=== PATIENT | female | born 1940 | race Caucasian/White ===

== ENCOUNTER 2017-01-23 15:12 | Inpatient (IN) | payer MEDICARE ==
[~2017-01-23] VITALS: Ht 162.6 cm; Wt 80.8 kg
[~2017-01-23 15:12] MED LIST: ASPI81TA23 PO; PRAV20TA2 PO
[2017-01-23 15:14] VITALS: BP 177/75; PULSE 73; RESP 16; TEMP 98.2; O2SAT 98
[2017-01-23] MEDS ORDERED: CITA20TA4 PO (15:30)
[2017-01-23] MEDS ORDERED: FLUT50SP EACH NARE (15:30)
[2017-01-23] MEDS ORDERED: DOXY20TA3 (15:30)
[2017-01-23] MEDS ORDERED: BENA25TA6 (15:30)
[2017-01-23] MEDS ORDERED: LORA1TAB12 PO (15:30)
[2017-01-23] MEDS ORDERED: MULTTAB67 PO (15:30)
[2017-01-23] MEDS ORDERED: VITA2000 PO (15:30)
[2017-01-23] MEDS ORDERED: IBUP1TAB5 PO (15:30)
[2017-01-23] MEDS ORDERED: PRAV40TA2 PO (15:30)
[2017-01-23] MEDS ORDERED: VITA10002 PO (15:30)
[2017-01-23] MEDS ORDERED: VITA500T83 PO (15:30)
[2017-01-23] MEDS ORDERED: CELE200C PO (15:30)
[2017-01-23] MEDS ORDERED: [UNRECOGNIZED DRUG - OTHER] (15:33)
--- NOTE | 2017-01-23 16:02 | PD ---
HPI . Right foot injury, syncope Chief Complaint: Injury Time Seen by Provider: 15:24 Travel History International Travel<30 days: No Contact w/Intl Traveler<30days: No Traveled to known affect area: No History of Present Illness HPI 76 year old female presents to the emergency department for evaluation after she had a syncopal episode this morning and fractured her right foot when she fell as a result of the syncope. Patient initially went to urgent care for evaluation and an x-ray of the right foot showed bimalleolar fracture with diffuse soft tissue swelling around the ankle. Patient states that she passed out for a minute because she became scared; apparently she was taking off her nightgown while she had a heating pad on her back, the heating pad accidently lifted off her lower back when she removed her nightgown and she thought her skin was getting pulled off and she passed out. Patient fell on the ground and woke up with right foot/ankle pain. PFSH Past Medical History Anxiety: Yes High Cholesterol: Yes Tetanus Vaccination: Unknown Influenza Vaccination: Yes Past Surgical History Other Surgery: Yes (LUMPECTOMY X3) Social History Alcohol Use: Yes (OCC) Tobacco Use: No Substance Use: No Allergies-Medications (Allergen,Severity, Reaction): Coded Allergies: iodine (Verified Allergy, Unknown, 01/23/17) Reported Meds & Prescriptions Reported Meds & Active Scripts Active Reported [Duova] Benadryl Allergy (Diphenhydramine HCl) 25 Mg Tablet Ibuprofen 400 Mg Tab 400 Mg PO Q6H PRN Vitamin D3 (Cholecalciferol) 2,000 Unit Cap 2,000 Units PO DAILY Vitamin C ER (Ascorbic Acid) 500 Mg Jovanna 1,000 Mg PO Vitamin B-12 (Cyanocobalamin) 1,000 Mcg Tab 1,000 Mcg PO DAILY Multiple Vitamin 1 Tab 1 Tab PO DAILY Fluticasone Nasal [place] 50 Mcg/Act Naspr 50 Mcg EACH NARE BID 50 mcg/spray Lorazepam 1 Mg Tab 1 Mg PO HS PRN Celebrex (Celecoxib) 200 Mg Cap 200 Mg PO BID Doxycycline Hyclate 20 Mg Tab Citalopram (Citalopram Hydrobromide) 20 Mg Tab 20 Mg PO DAILY Aspirin EC (Aspirin) 81 Mg Tabdr 81 Mg PO DAILY Pravastatin 20 Mg Tab 20 Mg PO DAILY Review of Systems Except as stated in HPI: all other systems reviewed are Neg Physical Exam Narrative GENERAL: Well-nourished, well-developed 76-year-old female patient in no acute distress. Nontoxic appearing. SKIN: Focused skin assessment warm/dry. HEAD: Normocephalic. Atraumatic. NEUROLOGICAL: Awake and alert. Cranial nerves II through XII intact. Motor and sensory grossly within normal limits. Five out of 5 muscle strength in all muscle groups. Normal speech. EYES: No scleral icterus. No injection or drainage. NECK: Supple, trachea midline. No JVD or lymphadenopathy. CARDIOVASCULAR: Regular rate and rhythm with murmur appreciated, No gallops, or rubs. Pedal pulses +2 bilaterally. RESPIRATORY: Breath sounds equal bilaterally. No accessory muscle use. GASTROINTESTINAL: Abdomen soft, non-tender, nondistended. MUSCULOSKELETAL: Right ankle is edematous and ecchymotic. No cyanosis, or erythema. BACK: Nontender without obvious deformity. No CVA tenderness. Data Data Last Documented VS Vital Signs Date Time Temp Pulse Resp B/P (MAP) Pulse Ox O2 Delivery O2 Flow Rate FiO2 01/23/17 15:35 77 18 96 Room Air 01/23/17 15:14 98.2 177/75 (109) Orders Orders Electrocardiogram (01/23/17 15:40) Complete Blood Count With Diff (01/23/17 15:40) Comprehensive Metabolic Panel (01/23/17 15:40) Magnesium (Mg) (01/23/17 15:40) Ckmb (Isoenzyme) Profile (01/23/17 15:40) Troponin I (01/23/17 15:40) Act Partial Throm Time (Ptt) (01/23/17 15:40) Prothrombin Time / Inr (Pt) (01/23/17 15:40) Urinalysis - C+S If Indicated (01/23/17 15:40) Chest, Single Ap (01/23/17 15:40) Ct Brain W/O Iv Contrast(Rout) (01/23/17 15:40) CKMB (01/23/17 15:50) CKMB% (01/23/17 15:50) Admit Order (Ed Use Only) (01/23/17 17:15) Labs Laboratory Tests Test 01/23/17 15:50 01/23/17 17:00 White Blood Count 10.8 TH/MM3 Red Blood Count 4.24 MIL/MM3 Hemoglobin 13.3 GM/DL Hematocrit 39.1 % Mean Corpuscular Volume 92.2 FL Mean Corpuscular Hemoglobin 31.4 PG Mean Corpuscular Hemoglobin Concent 34.1 % Red Cell Distribution Width 12.7 % Platelet Count 218 TH/MM3 Mean Platelet Volume 9.4 FL Neutrophils (%) (Auto) 78.3 % Lymphocytes (%) (Auto) 13.3 % Monocytes (%) (Auto) 7.0 % Eosinophils (%) (Auto) 1.0 % Basophils (%) (Auto) 0.4 % Neutrophils # (Auto) 8.4 TH/MM3 Lymphocytes # (Auto) 1.4 TH/MM3 Monocytes # (Auto) 0.8 TH/MM3 Eosinophils # (Auto) 0.1 TH/MM3 Basophils # (Auto) 0.0 TH/MM3 CBC Comment DIFF FINAL Differential Comment Prothrombin Time 10.3 SEC Prothromb Time International Ratio 1.0 RATIO Activated Partial Thromboplast Time 22.6 SEC Blood Urea Nitrogen 15 MG/DL Creatinine 0.77 MG/DL Random Glucose 105 MG/DL Total Protein 8.1 GM/DL Albumin 4.1 GM/DL Calcium Level 9.3 MG/DL Magnesium Level 1.9 MG/DL Alkaline Phosphatase 61 U/L Aspartate Amino Transf (AST/SGOT) 23 U/L Alanine Aminotransferase (ALT/SGPT) 25 U/L Total Bilirubin 0.3 MG/DL Sodium Level 138 MEQ/L Potassium Level 3.6 MEQ/L Chloride Level 104 MEQ/L Carbon Dioxide Level 27.4 MEQ/L Anion Gap 7 MEQ/L Estimat Glomerular Filtration Rate 73 ML/MIN Total Creatine Kinase 126 U/L Creatine Kinase MB 3.1 NG/ML Troponin I LESS THAN 0.02 NG/ML Urine Color YELLOW Urine Turbidity CLEAR Urine pH 5.5 Urine Specific [place] 1.019 Urine Protein TRACE mg/dL Urine Glucose (UA) NEG mg/dL Urine Ketones NEG mg/dL Urine Occult Blood NEG Urine Nitrite NEG Urine Bilirubin NEG Urine Urobilinogen LESS THAN 2.0 MG/DL Urine Leukocyte Esterase SMALL Urine RBC 5 /hpf Urine WBC 5 /hpf Urine Squamous Epithelial Cells 3 /hpf Urine Hyaline Casts 1 /lpf Urine Mucus FEW /lpf Microscopic Urinalysis Comment CULT NOT INDICATED MDM Medical Decision Making Medical Screen Exam Complete: Yes Emergency Medical Condition: Yes Differential Diagnosis Differential diagnoses include but not limited electrolyte abnormality, ankle fracture, ankle sprain, syncope, coronary event, vasovagal event Narrative Course 76-year-old female presents emergency department for evaluation after having a syncopal episode and fracturing her right ankle. Patient was evaluated at an urgent care clinic and the x-ray of the right ankle was performed. Patient was referred to the emergency department for admission for the bimalleolar ankle fracture. Patient was admitted to the hospital for syncope and surgical intervention for the fracture. Residents accepted admission. Dr. Osei, orthopedic surgeon was consulted for surgical intervention. Patient admitted to the hospital at this time. Dr. Nguyen spoke with the residents and Dr. Osei regarding this patient case. Please see his doctor medication for further details. Aida Langley Jan 23, 2017 16:02
--- NOTE | 2017-01-23 16:06 | RADRPT ---
EXAM DATE/TIME: 01/23/2017 15:53 [facility] COMPARISON: No previous studies available for comparison. INDICATIONS : Syncope. Weakness. MEDICAL HISTORY : None. SURGICAL HISTORY : None. ENCOUNTER: Initial ACUITY: 1 day PAIN SCORE: 6/10 LOCATION: Bilateral chest FINDINGS: A single view of the chest demonstrates the lungs to be symmetrically aerated without evidence of mas s, infiltrate or effusion. The cardiomediastinal contours are unremarkable. Osseous structures are intact. CONCLUSION: No acute disease. Huy Shepherd MD on January 23, 2017 at 16:04 Board Certified Radiologist. This report was verified electronically.
[2017-01-23 16:08] LABS: AUTOMATED NEUTROPHIL # 8.4 TH/MM3 (1.8-7.7); BASOPHIL % 0.4 % (0.0-2.0); EOSINOPHIL # 0.1 TH/MM3 (0-0.4); HEMATOCRIT 39.1 % (35.0-46.0); HEMO FLAGS DIFF FINAL; LYMPH % 13.3 % (9.0-44.0); LYMPHOCYTE # 1.4 TH/MM3 (1.0-4.8); MEAN CELL VOLUME 92.2 FL (80.0-100.0); MEAN CORPUSCULAR HEMOGLOBIN 31.4 PG (27.0-34.0); MEAN CORPUSCULAR HGB CONC 34.1 % (32.0-36.0); NEUT % 78.3 % (16.0-70.0); PLATELET COUNT 218 TH/MM3 (150-450); RED BLOOD COUNT 4.24 MIL/MM3 (4.00-5.30); RED CELL DISTRIBUTION WIDTH 12.7 % (11.6-17.2); WHITE BLOOD COUNT 10.8 TH/MM3 (4.0-11.0)
--- NOTE | 2017-01-23 16:08 | RADRPT ---
EXAM DATE/TIME: 01/23/2017 15:50 [facility] COMPARISON: No previous studies available for comparison. INDICATIONS : Syncope. RADIATION DOSE: 56.35 CTDIvol (mGy) MEDICAL HISTORY : Carcinoma, breast. Hypercholesterolemia. SURGICAL HISTORY : Mouth implants.Lumpectomy x 3 ENCOUNTER: Initial ACUITY: 1 day PAIN SCALE: 0/10 LOCATION: cranial TECHNIQUE: Multiple contiguous axial images were obtained of the head. Using automated exposure control and adj ustment of the mA and/or kV according to patient size, radiation dose was kept as low as reasonably a chievable to obtain optimal diagnostic quality images. DICOM format image data is available electro nically for review and comparison. FINDINGS: CEREBRUM: The ventricles are normal for age. There is bilateral cortical atrophy and chronic white matter kothari es. There is a small old appearing infarct involving the medial left occipital lobe. No evidence of midline shift, mass lesion, hemorrhage or acute infarction. No extra-axial fluid collections are see n. POSTERIOR FOSSA: The cerebellum and brainstem are intact. The 4th ventricle is midline. The cerebellopontine angle i s unremarkable. EXTRACRANIAL: The visualized portion of the orbits is intact. SKULL: The calvaria is intact. No evidence of skull fracture. CONCLUSION: 1. No focal or acute intracranial hemorrhage. 2. 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 3. Bilateral chronic white matter changes. Huy Shepherd MD on January 23, 2017 at 16:04 Board Certified Radiologist. This report was verified electronically.
[2017-01-23 16:21] LABS: APTT (PATIENT) 22.6 SEC (24.3-30.1); PROTHROMBIN TIME - PATIENT 10.3 SEC (9.8-11.6)
[2017-01-23 16:27] LABS: ALT (GPT) 25 U/L (10-53); ANION GAP 7 MEQ/L (5-15); AST (GOT) 23 U/L (15-37); BICARBONATE 27.4 MEQ/L (21.0-32.0); BLOOD UREA NITROGEN 15 MG/DL (7-18); CHLORIDE 104 MEQ/L (98-107); GLOMERULAR FILTRATION RATE 73 ML/MIN (>89); MAGNESIUM 1.9 MG/DL (1.5-2.5); POTASSIUM 3.6 MEQ/L (3.5-5.1); SODIUM (NA) 138 MEQ/L (136-145)
[2017-01-23 16:31] LABS: ALKALINE PHOSPHATASE 61 U/L (45-117); CREATINE KINASE 126 U/L (26-192); TOTAL BILIRUBIN ADULT 0.3 MG/DL (0.2-1.0)
[2017-01-23 16:43] LABS: CKMB 3.1 NG/ML (0.5-3.6)
--- NOTE | 2017-01-23 17:03 | PD ---
Data Data Last Documented VS Vital Signs Date Time Temp Pulse Resp B/P (MAP) Pulse Ox O2 Delivery O2 Flow Rate FiO2 01/23/17 15:35 77 18 96 Room Air 01/23/17 15:14 98.2 177/75 (109) Orders Orders Electrocardiogram (01/23/17 15:40) Complete Blood Count With Diff (01/23/17 15:40) Comprehensive Metabolic Panel (01/23/17 15:40) Magnesium (Mg) (01/23/17 15:40) Ckmb (Isoenzyme) Profile (01/23/17 15:40) Troponin I (01/23/17 15:40) Act Partial Throm Time (Ptt) (01/23/17 15:40) Prothrombin Time / Inr (Pt) (01/23/17 15:40) Urinalysis - C+S If Indicated (01/23/17 15:40) Chest, Single Ap (01/23/17 15:40) Ct Brain W/O Iv Contrast(Rout) (01/23/17 15:40) CKMB (01/23/17 15:50) CKMB% (01/23/17 15:50) Admit Order (Ed Use Only) (01/23/17 17:15) Labs Laboratory Tests Test 01/23/17 15:50 01/23/17 17:00 White Blood Count 10.8 TH/MM3 Red Blood Count 4.24 MIL/MM3 Hemoglobin 13.3 GM/DL Hematocrit 39.1 % Mean Corpuscular Volume 92.2 FL Mean Corpuscular Hemoglobin 31.4 PG Mean Corpuscular Hemoglobin Concent 34.1 % Red Cell Distribution Width 12.7 % Platelet Count 218 TH/MM3 Mean Platelet Volume 9.4 FL Neutrophils (%) (Auto) 78.3 % Lymphocytes (%) (Auto) 13.3 % Monocytes (%) (Auto) 7.0 % Eosinophils (%) (Auto) 1.0 % Basophils (%) (Auto) 0.4 % Neutrophils # (Auto) 8.4 TH/MM3 Lymphocytes # (Auto) 1.4 TH/MM3 Monocytes # (Auto) 0.8 TH/MM3 Eosinophils # (Auto) 0.1 TH/MM3 Basophils # (Auto) 0.0 TH/MM3 CBC Comment DIFF FINAL Differential Comment Prothrombin Time 10.3 SEC Prothromb Time International Ratio 1.0 RATIO Activated Partial Thromboplast Time 22.6 SEC Blood Urea Nitrogen 15 MG/DL Creatinine 0.77 MG/DL Random Glucose 105 MG/DL Total Protein 8.1 GM/DL Albumin 4.1 GM/DL Calcium Level 9.3 MG/DL Magnesium Level 1.9 MG/DL Alkaline Phosphatase 61 U/L Aspartate Amino Transf (AST/SGOT) 23 U/L Alanine Aminotransferase (ALT/SGPT) 25 U/L Total Bilirubin 0.3 MG/DL Sodium Level 138 MEQ/L Potassium Level 3.6 MEQ/L Chloride Level 104 MEQ/L Carbon Dioxide Level 27.4 MEQ/L Anion Gap 7 MEQ/L Estimat Glomerular Filtration Rate 73 ML/MIN Total Creatine Kinase 126 U/L Creatine Kinase MB 3.1 NG/ML Troponin I LESS THAN 0.02 NG/ML Urine Color YELLOW Urine Turbidity CLEAR Urine pH 5.5 Urine Specific [place] 1.019 Urine Protein TRACE mg/dL Urine Glucose (UA) NEG mg/dL Urine Ketones NEG mg/dL Urine Occult Blood NEG Urine Nitrite NEG Urine Bilirubin NEG Urine Urobilinogen LESS THAN 2.0 MG/DL Urine Leukocyte Esterase SMALL Urine RBC 5 /hpf Urine WBC 5 /hpf Urine Squamous Epithelial Cells 3 /hpf Urine Hyaline Casts 1 /lpf Urine Mucus FEW /lpf Microscopic Urinalysis Comment CULT NOT INDICATED MDM Medical Record Reviewed: Yes Supervised Visit with ANISH: Yes Narrative Course I, Dr. Nguyen, have reviewed the advance practice practitioner's documentation and am in agreement, met with the patient face to face, made the diagnosis, and the medical decision making was done by me. *My assessment and Findings: CBC & BMP Diagram 01/23/17 15:50 Total Protein 8.1, Albumin 4.1, Calcium Level 9.3, Magnesium Level 1.9, Alkaline Phosphatase 61, Aspartate Amino Transf (AST/SGOT) 23, Alanine Aminotransferase (ALT/SGPT) 25, Total Bilirubin 0.3 EKG: Sinus rate 72 normal axis/intervals Tn < 0.[address] 01/23/17 1540 Signed Impressions: Service Date/Time: Monday, January 23, 2017 15:50 - CONCLUSION: 1. No focal or acute intracranial hemorrhage. 2. 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 3. Bilateral chronic white matter changes. Huy Shepherd MD Chest X-Ray 01/23/17 1540 Signed Impressions: Service Date/Time: Monday, January 23, 2017 15:53 - CONCLUSION: No acute disease. Huy Shepherd MD Ankle xray shows bimalleolar fracture of the right ankle, closed Pt unsuitable for discharge home with podiatry follow up tomorrow due to inability to ambulate with crutches given age 76 and habitus and risk of fall with potential additional injuries. d/w Dr Osei: npo p mn, repair tomorrow Diagnosis Primary Impression: Bimalleolar ankle fracture Qualified Codes: S82.841A - Displaced bimalleolar fracture of right lower leg , initial encounter for closed fracture Additional Impression: Syncope Qualified Codes: R55 - Syncope and collapse Admitting Information Admitting Physician Requests: Observation Scripts Commode 3-in-1 (Commode 3-in-1) 1 Mis Mis EA .ROUTE DIRECTED, #1 0 Refills Prov: Jared Davies PA/Classified Ad Clerk PA 01/25/17 Hydrocodone-Acetaminophen (Hydrocodone-Acetaminophen) 7.5 Mg-325 Mg Tab 1 TAB PO Q4H Y for PAIN, #40 TAB 0 Refills Prov: Jared Daviess PA/Classified Ad Clerk PA 01/24/17 Wheelchair (Wheelchair) 1 Mis Mis EA .ROUTE DIRECTED, #1 0 Refills Prov: Jared Daviess PA/Classified Ad Clerk PA 01/24/17 Walker/Adult/Folding (Walker/Adult/Folding) 1 Mis Mis EA .ROUTE DIRECTED, #1 0 Refills Prov: Jared Davies PA/Classified Ad Clerk PA 01/24/17 Krishna Nguyen MD Jan 23, 2017 17:03
[2017-01-23 17:20] LABS: BLOOD, URINE NEG (NEG); COMMENT (UR) CULT NOT INDICATED; CULTURE IF INDICATED CULT NOT INDICATED; GLUCOSE,URINE NEG (NEG); HYALINE CAST, URINE 1 /lpf (RARE); KETONE, URINE NEG (NEG); MUCUS URINE FEW /lpf (OCC); NITRITE,URINE NEG (NEG); PH, URINE 5.5 (5.0-8.5); SQUAMOUS EPITHELIAL CELL URINE 3 /hpf (0-5); URINE COLOR YELLOW (YELLW/STRAW)
--- NOTE | 2017-01-23 17:33 | HHI.HP ---
[facility] Service Family Medicine Primary Care Physician Fer Dawson MD Admission Diagnosis ankle fracture, syncope Diagnoses: International Travel<30 Days: No Contact w/Intl Traveler<30days: No Known Affected Area: No History of Present Illness 76 yr old F w/ hx of syncopal episodes and HLD, presents with ankle fracture after mechanical fall due to syncope. Patients reports 1week hx back pain from heavy lifting. She used two hot/cold patches in addition to a heating pad on her lower back last night. When she woke up this morning, she was trying to remove the patches. However, the patches were stuck to her skin and she began to feel a lot of pain as she was pulling them off. She started to turn cold and lightheaded. She tried laying down and put too much weight on her right ankle. She denies hitting her head and is unsure if she had LOC. The last thing she remember was hitting the hardwood floor and was unable to get up afterwards. Luckily, her was nearby and immediately brought her to the urgent care. X-ray of her right ankle revealed bimalleolar fracture. She denies shaking, CP, SOB, urinary incontinence, palpitations, vision changes, weakness in arms/legs, LUNA, and N/V. She's had these syncopal episodes for the past 5 years and they are usually brought on by pain. Her firs episode happened 5 years ago. She was sitting on the toilet and the next thing she knew she was on the floor. She did not get evaluate by a physician then. Her next couple of episodes have been associated with stomach pain (intermittent sharp pain in lower abdominal quadrants) and relieved with bowel movements. She reports "feeling like her body is turning cold and starts to spread." She had a coloscopy 5 years ago and several polyps were removed. She states that she is able to control these syncopal episodes by lying down. PCP, Dr. Dawson Review of Systems Constitutional: DENIES: Fever, Weight loss, Night Sweats Endocrine: DENIES: Heat/cold intolerance Eyes: DENIES: Blurred vision, Diplopia Ears, nose, mouth, throat: DENIES: Hearing loss Respiratory: DENIES: Shortness of breath Cardiovascular: COMPLAINS OF: Syncope, DENIES: Chest pain, Palpitations, Lower Extremity Edema Gastrointestinal: DENIES: Abdominal pain, Nausea, Vomiting Musculoskeletal: COMPLAINS OF: Joint pain (R ankle pain ), DENIES: Muscle aches Hematologic/lymphatic: DENIES: Bruising Neurologic: DENIES: Headache, Poor Balance Psychiatric: DENIES: Confusion Past Family Social History Past Medical History HLD Rosacea- takes doxycycline for it Arthritis no hx of heart attack or stroke Past Surgical History 3 lobectomy in Left breast- benign dental surgery- implants Allergies: Coded Allergies: iodine (Verified Allergy, Unknown, 01/23/17) Family History Mom- at 57 [place] Dad -CHF at 71 Social History Lives with , in [place] Retired Never smoker Occasional drinker 1glass of wine every 3rd night denies illicit drugs Physical Exam Vital Signs Vital Signs Date Time Temp Pulse Resp B/P (MAP) Pulse Ox O2 Delivery O2 Flow Rate FiO2 01/23/17 15:35 77 18 96 Room Air 01/23/17 15:14 98.2 73 16 177/75 (109) 98 Physical Exam GENERAL: pleasant lady, lying in bed, in NAD SKIN: No rashes, ecchymoses or lesions. Cool and dry. HEAD: Atraumatic. Normocephalic. EYES: PERRLA, EOMI ENT: Throat clear NECK: Trachea midline. No JVD or lymphadenopathy. No carotid bruits. CARDIOVASCULAR: RRR, no m/r/g RESPIRATORY: CTAB GASTROINTESTINAL: Abdomen soft, non-tender, nondistended. +BS MUSCULOSKELETAL: R ankle moderately swollen compared to the L, moderate tenderness in R ankle upon palpation, able to move all toes, sensation intact, pedal pulses 2+ NEUROLOGICAL: Awake, Alert, oriented x3 Laboratory Laboratory Tests Test 01/23/17 15:50 01/23/17 17:00 White Blood Count 10.8 Red Blood Count 4.24 Hemoglobin 13.3 Hematocrit 39.1 Mean Corpuscular Volume 92.2 Mean Corpuscular Hemoglobin 31.4 Mean Corpuscular Hemoglobin Concent 34.1 Red Cell Distribution Width 12.7 Platelet Count 218 Mean Platelet Volume 9.4 Neutrophils (%) (Auto) 78.3 Lymphocytes (%) (Auto) 13.3 Monocytes (%) (Auto) 7.0 Eosinophils (%) (Auto) 1.0 Basophils (%) (Auto) 0.4 Neutrophils # (Auto) 8.4 Lymphocytes # (Auto) 1.4 Monocytes # (Auto) 0.8 Eosinophils # (Auto) 0.1 Basophils # (Auto) 0.0 CBC Comment DIFF FINAL Differential Comment Prothrombin Time 10.3 Prothromb Time International Ratio 1.0 Activated Partial Thromboplast Time 22.6 Blood Urea Nitrogen 15 Creatinine 0.77 Random Glucose 105 Total Protein 8.1 Albumin 4.1 Calcium Level 9.3 Magnesium Level 1.9 Alkaline Phosphatase 61 Aspartate Amino Transf (AST/SGOT) 23 Alanine Aminotransferase (ALT/SGPT) 25 Total Bilirubin 0.3 Sodium Level 138 Potassium Level 3.6 Chloride Level 104 Carbon Dioxide Level 27.4 Anion Gap 7 Estimat Glomerular Filtration Rate 73 Total Creatine Kinase 126 Creatine Kinase MB 3.1 Troponin I LESS THAN 0.02 Urine Color YELLOW Urine Turbidity CLEAR Urine pH 5.5 Urine Specific [place] 1.019 Urine Protein TRACE Urine Glucose (UA) NEG Urine Ketones NEG Urine Occult Blood NEG Urine Nitrite NEG Urine Bilirubin NEG Urine Urobilinogen LESS THAN 2.0 Urine Leukocyte Esterase SMALL Urine RBC 5 Urine WBC 5 Urine Squamous Epithelial Cells 3 Urine Hyaline Casts 1 Urine Mucus FEW Microscopic Urinalysis Comment CULT NOT INDICATED Result Diagram: 01/23/17 1550 01/23/17 1550 Imaging Last Impressions Head CT 01/23/17 1540 Signed Impressions: Service Date/Time: Monday, January 23, 2017 15:50 - CONCLUSION: 1. No focal or acute intracranial hemorrhage. 2. 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 3. Bilateral chronic white matter changes. Huy Shepherd MD Chest X-Ray 01/23/17 1540 Signed Impressions: Service Date/Time: Monday, January 23, 2017 15:53 - CONCLUSION: No acute disease. Huy Shepherd MD Caprini VTE Risk Assessment Caprini VTE Risk Assessment: Mod/High Risk (score >= 2) Caprini Risk Assessment Model Point Value = 1 Point Value = 2 Point Value = 3 Point Value = 5 Age 41-60 Minor surgery BMI > 25 kg/m2 Swollen legs Varicose veins or History of unexplained or recurrent spontaneous Oral contraceptives or hormone replacement Sepsis (< 1 month) Serious lung disease, including pneumonia (< 1 month) Abnormal pulmonary function Acute myocardial infarction Congestive heart failure (< 1 month) History of inflammatory bowel disease Medical patient at bed rest Age 61-74 Arthroscopic surgery Major open surgery (> 45 min) Laparoscopic surgery (> 45 min) Malignancy Confined to bed (> 72 hours) Immobilizing plaster cast Central venous access Age >= 75 History of VTE Family history of VTE Factor V Leiden Prothrombin [id number] Lupus anticoagulant Anticardiolipin antibodies Elevated serum homocysteine Heparin-induced thrombocytopenia Other congenital or acquired thrombophilia Stroke (< 1 month) Elective arthroplasty Hip, pelvis, or leg fracture Acute spinal cord injury (< 1 month) Prophylaxis Regimen Total Risk Factor Score Risk Level Prophylaxis Regimen 0-1 Low Early ambulation 2 Moderate Order ONE of the following: *Sequential Compression Device (SCD) *Heparin 5000 units SQ BID 3-4 Higher Order ONE of the following medications: *Heparin 5000 units SQ TID *Enoxaparin/Lovenox 40 mg SQ daily (WT < 150 kg, CrCl > 30 mL/min) *Enoxaparin/Lovenox 30 mg SQ daily (WT < 150 kg, CrCl > 10-29 mL/min) *Enoxaparin/Lovenox 30 mg SQ BID (WT < 150 kg, CrCl > 30 mL/min) AND/OR *Sequential Compression Device (SCD) 5 or more Highest Order ONE of the following medications: *Heparin 5000 units SQ TID (Preferred with Epidurals) *Enoxaparin/Lovenox 40 mg SQ daily (WT < 150 kg, CrCl > 30 mL/min) *Enoxaparin/Lovenox 30 mg SQ daily (WT < 150 kg, CrCl > 10-29 mL/min) *Enoxaparin/Lovenox 30 mg SQ BID (WT < 150 kg, CrCl > 30 mL/min) AND *Sequential Compression Device (SCD) Assessment and Plan Assessment and Plan 76 yr old F admitted for bimalleolar fracture of R ankle due to mechanical fall secondary to syncope (most likely vasovagal). Ortho consulted. Code Status Full Code Discussed Condition With Dr. Hollins Problem List: (1) Bimalleolar ankle fracture ICD Codes: S82.843A - Displaced bimalleolar fracture of unspecified lower leg, initial encounter for closed fracture Status: Acute Plan: CXR at urgent care clinic revealed bimalleolar fracture with diffuse soft tissue swelling of R ankle. Orthopedic consulted. ED physician spoke with Dr. Osei, patient will need surgery in the AM. NPO after midnight, MIVF Pain control: [place] 5mg 1 tab PO q4 pain 3-5, [place] 7.5 mg PO q4h pain 6-10, morphine 2mg IV push q3h for breakthrough pain (2) Syncope ICD Codes: R55 - Syncope and collapse Status: Acute Plan: Pt reports multiple syncopal episodes in the past, related to abdominal pain, resolved with defecation and lying down. Most likely vasovagal due to hx. EKG sinus rhythm Monitor with telemetry Pt reports never having carotid US or Echo, may consider as outpatient work-up Normal stress test done [address] Shafer Colonoscopy for abdominal pain 5 years ago, several polyps removed (3) Anxiety ICD Codes: F41.9 - Anxiety disorder, unspecified Plan: Continue home med: Citalopram 20mg BID Ativan 1mg PO HS (4) Rosacea ICD Codes: L71.9 - Rosacea, unspecified Plan: Held home med: Doxycycline 20mg daily (5) Arthritis ICD Codes: M19.90 - Unspecified osteoarthritis, unspecified site Plan: Held home med: Celecoxib 200mg BID (6) HLD (hyperlipidemia) ICD Codes: E78.5 - Hyperlipidemia, unspecified Plan: Continue Pravastatin 20mg daily (7) Nutrition, metabolism, and development symptoms ICD Codes: R63.8 - Other symptoms and signs concerning food and fluid intake Plan: Diet: NPO after midnight Fluids: 115mls/hr MIVF after midnight Electrolytes: monitor and replace as needed DVT ppx: SCDs PT to eval and treat, may need rehab after surgery Case management consult Physician Certification 2 Midnight Certification Type: Admission for Inpatient Services Order for Inpatient Services The services are ordered in accordance with Medicare regulations or non- Medicare payer requirements, as applicable. In the case of services not specified as inpatient-only, they are appropriately provided as inpatient services in accordance with the 2-midnight benchmark. Estimated LOS (days): 2 2 days is the estimated time the patient will need to remain in the hospital, assuming treatment plan goals are met and no additional complications. Post-Hospital Plan: Home Problem Qualifiers (1) Bimalleolar ankle fracture: Qualified Codes: S82.841A - Displaced bimalleolar fracture of right lower leg, initial encounter for closed fracture (2) Syncope: Qualified Codes: R55 - Syncope and collapse Etta Loomis MD R1 Jan 23, 2017 17:33
[2017-01-23] MEDS ORDERED: SENNOSIDES 8.6 MG TAB PO PRN (18:15)
[2017-01-23] MEDS ORDERED: SODIUM CHLORIDE 0.9% FLUSH 10 ML FLUSH IV FLUSH PRN (18:15)
[2017-01-23] MEDS ORDERED: MORPHINE SULFATE 4 MG/ML INJ IV PUSH PRN (18:15)
[2017-01-23] MEDS ORDERED: ACETAMINOPHEN/HYDROcodone 325 MG/5 MG TAB PO PRN (18:15)
[2017-01-23] MEDS ORDERED: MAGNESIUM HYDROXIDE SUSP 30 ML CUP PO PRN (18:15)
[2017-01-23] MEDS ORDERED: ONDANSETRON HCL 4 MG/2 ML VIAL IVP PRN (18:15)
[2017-01-23] MEDS ORDERED: NALOXONE HCL 0.4 MG/ML AMP IV PUSH PRN (18:15)
[2017-01-23] MEDS ORDERED: BISACODYL 10 MG SUPP RECTAL PRN (18:15)
[2017-01-23] MEDS ORDERED: LACTULOSE SYRUP 20 GM/30 ML CUP PO PRN (18:15)
[2017-01-23] MEDS ORDERED: ACETAMINOPHEN/HYDROcodone 325 MG/7.5 MG TAB PO PRN (18:15)
[2017-01-23] MEDS: PRAVASTATIN SOD 20 MG TAB PO SCH (20:04)
[2017-01-23] MEDS: CITALOPRAM HYDROBROMIDE 20 MG TAB PO SCH (20:04)
[2017-01-23] MEDS: DOCUSATE SODIUM 50 MG/SENNA 8.6 MG TAB PO SCH (20:04)
[2017-01-23] MEDS: SODIUM CHLORIDE 0.9% FLUSH 10 ML FLUSH IV FLUSH SCH (20:04)
[2017-01-23 20:45] VITALS: BP 172/79; PULSE 77; RESP 17; TEMP 99; O2SAT 96
[2017-01-23] MEDS ORDERED: CELECOXIB 200 MG CAP PO SCH (21:00)
[2017-01-23 21:40] VITALS: PULSE 80
[2017-01-23] MEDS ORDERED: diphenhydrAMINE HCL 25 MG CAP PO PRN (22:30)
[2017-01-23] MEDS: LORazepam 1 MG TAB PO PRN (23:32)
[2017-01-24] VITALS (7 sets, daily range): BP systolic 118–137; BP diastolic 58–78; PULSE 79–97; RESP 16–18; TEMP 96.6–99.3; O2SAT 92–100
[2017-01-24] MEDS ORDERED: LACTATED RINGER'S 1000 ML IV PRN (00:15)
[2017-01-24] MEDS ORDERED: METOPROLOL TARTRATE 25 MG TAB PO PRN (00:15)
[2017-01-24] MEDS ORDERED: SODIUM CHLORID 0.9% 500 ML IV PRN (00:15)
[2017-01-24] MEDS ORDERED: CHLORHEXIDINE GLUCONATE 2 % 1 PACK (2 CLOTHS) TOPICAL PRN (00:15)
[2017-01-24] MEDS ORDERED: GENTAMICIN SULFATE 80 MG/2 ML VIAL ONE (07:03)
[2017-01-24 07:05] LABS: BASOPHIL % 0.4 % (0.0-2.0); EOSINOPHIL # 0.4 TH/MM3 (0-0.4); EOSINOPHIL % 4.3 % (0.0-4.0); HEMATOCRIT 34.3 % (35.0-46.0); HEMO FLAGS DIFF FINAL; LYMPH % 25.7 % (9.0-44.0); LYMPHOCYTE # 2.2 TH/MM3 (1.0-4.8); MEAN CORPUSCULAR HGB CONC 34.8 % (32.0-36.0); MONO % 10.8 % (0.0-8.0); NEUT % 58.8 % (16.0-70.0); PLATELET COUNT 184 TH/MM3 (150-450); RED BLOOD COUNT 3.73 MIL/MM3 (4.00-5.30); RED CELL DISTRIBUTION WIDTH 12.4 % (11.6-17.2); WHITE BLOOD COUNT 8.5 TH/MM3 (4.0-11.0)
--- NOTE | 2017-01-24 07:17 | PD.ORT.PN ---
Subjective Subjective Remarks Fall at home and rolled her right ankle. Brought to the emergency room and x- rays confirmed bimalleolar ankle fracture Objective Vitals Vital Signs Date Time Temp Pulse Resp B/P (MAP) Pulse Ox O2 Delivery O2 Flow Rate FiO2 01/24/17 04:13 98.7 84 17 118/77 (91) 97 01/24/17 00:52 93 21 01/24/17 00:22 99.3 79 17 137/78 (97) 96 01/23/17 21:40 80 01/23/17 20:45 99.0 77 17 172/79 (110) 96 01/23/17 15:35 77 18 96 Room Air 01/23/17 15:14 98.2 73 16 177/75 (109) 98 I/O 01/23/17 01/23/17 01/23/17 01/24/17 01/24/17 01/24/17 07:00 15:00 23:00 07:00 15:00 23:00 Intake Total 240 ml 0 ml Balance 240 ml 0 ml Intake Oral 240 ml 0 ml # Voids 1 1 # Bowel Movements 0 0 Result Diagram: 01/24/17 0503 01/23/17 1550 Other Results Laboratory Tests Test 01/23/17 15:50 Prothromb Time International Ratio 1.0 RATIO Prothrombin Time 10.3 SEC (9.8-11.6) Imaging Last [address] 01/23/17 1540 Signed Impressions: Service Date/Time: Monday, January 23, 2017 15:50 - CONCLUSION: 1. No focal or acute intracranial hemorrhage. 2. 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 3. Bilateral chronic white matter changes. Huy Shepherd MD Chest X-Ray 01/23/17 1540 Signed Impressions: Service Date/Time: Monday, January 23, 2017 15:53 - CONCLUSION: No acute disease. Huy Shepherd MD Objective Remarks Right lower extremity: No pain with hip or knee range of motion. She has significant tenderness over with medial lateral portion of the ankle. No splint is present. She has intact sensation distally she has swelling of +2. Skin is intact over the ankle Assessment & Plan Assessment and Plan Right bimalleolar ankle fracture Nothing by mouth Sign consents Surgery this morning with Dr. Navi Bowser Jr. HI Jan 24, 2017 07:17
[2017-01-24 07:28] LABS: BICARBONATE 27.3 MEQ/L (21.0-32.0); POTASSIUM 3.5 MEQ/L (3.5-5.1)
[2017-01-24] MEDS ORDERED: ceFAZolin INJ 1,000 MG VIAL ONE (08:37)
[2017-01-24] MEDS ORDERED: VANCOMYCIN HCL 1000 MG VIAL ONE (08:37)
--- NOTE | 2017-01-24 09:39 | PD.OP ---
cc: Constantine Larios MD Operative Report Date of Surgery: Jan 24, 2017 Preoperative Diagnosis: Right ankle trimalleolar fracture Postoperative Diagnosis: Procedure: Open reduction internal fixation right ankle trimalleolar fracture, stress exam of syndesmosis Anesthesia: Gen. Surgeon: Constantine Larios Barge Worker(s): BOLA Mendez PA-C The surgical procedure was assisted by my physician ambulance assistant. My P.A. presence was necessary throughout this case for the manipulation and positioning of the surgical extremity. My P.A. was assisting me throughout the duration of this procedure. The skill set of a physician ambulance assistant was medically necessary to complete this procedure. During the surgical case the surgical appliances salesperson was working at the back table and the physician ambulance assistant was directly assisting me. Operation and Findings: Implants used :ITS Patient was seen and evaluated preoperatively and found to have a displaced right trimalleolar ankle fracture. Informed consent was obtained after a detailed discussion of risk and benefits of surgery. The operative site was marked. Patient was brought to the OR, placed on the OR table, and given IV sedation and general endotracheal anesthesia. IV antibiotics were given preoperatively. A timeout procedure was performed. The operative leg was prepped with alcohol followed by Hibiclens and draped in the usual sterile fashion. Attention was turned towards the distal fibula. A four-inch incision was made over the distal fibula. The subcutaneous tissue was dissected with Bovie. The fracture site was visualized. The fracture site was cleaned with curets. The fracture was now reduced. The fracture keyed into anatomic alignment. K-wires were used to h old provisional fixation. A lag screw was placed to compress fracture. A plate was selected and contoured to fit the distal fibula. The plate was provisionally held to bone with K-wires. 3.5 cortical screws were used to compress the plate to bone. Multiple screws were placed above and below the fracture. Next attention was turned towards the medial malleolus. The medial malleolus supposed through a 3 cm incision. Saphenous vein was retracted. Fracture was visualized. Fracture was cleaned with curettes. Fracture was now reduced and keyed into anatomic alignment. K wires were used to hold provisional fixation. 2 guidepins for the 4.0 cannulated screws were placed in a retrograde fashion across the fracture. Fluoroscopy was used to confirm guidepin placement. Cannulated drill was placed over the guidepin. 2 appropriate length screws were now placed. Good compression was applied. Fluoroscopy confirmed well aligned fracture with well-placed hardware. The posterior malleolus fracture was also visualized under fluoroscopy. Fracture fragment was relatively small with minimal articular surface. This was left in place. Next, attention was turned to the syndesmosis. The syndesmosis was stressed. There was no widening of the syndesmosis with external rotation of the ankle. Incisions were thoroughly irrigated. The subcutaneous tissue was closed with 3- 0 Vicryl and the skin was closed with 3-0 nylon. Sterile dressings were applied. A well molded well-padded splint was applied. The patient was transferred to Recovery in stable condition. Needle and sponge counts were correct. Constantine Larios MD Jan 24, 2017 09:39
[2017-01-24] MEDS ORDERED: Post-op Orders (for Pharmacy) XX ONE (09:45)
--- NOTE | 2017-01-24 09:55 | MB ---
cc: SILVIA VOGEL DATE OF ADMISSION 01/23/2017 DATE OF CONSULTATION 01/24/2017 REASON FOR CONSULTATION Right ankle fracture. CONSULTING PHYSICIAN Dr. Juliet Pate. HISTORY Carolee is a 76-year-old female who has a history of syncopal episodes. She had a syncopal episode yesterday. She states that she had a back strain approximately one week ago. She has been using patches and a heating pad on her back. She woke up this morning and was trying to remove the patches. She lost her balance. She fell and twisted her ankle. She had immediate right ankle pain. She presented to the emergency room where x-rays revealed a right hip fracture. She is currently awake and alert on the orthopedic floor. Her only complaint is her right ankle. The pain is worse with movement and is improved with rest. PAST MEDICAL HISTORY ILLNESSES 1. High cholesterol. 2. Rosacea. 3. Aarthritis. 4. History of syncope. SURGERIES Lumpectomy of left breast. Dental surgery ALLERGIES IODINE. MEDICATIONS Please see EMR for complete list of inpatient medications. This was reviewed. SOCIAL HISTORY The patient lives in [place] with her . She is retired. She drinks wine occasionally. She denies tobacco or drug use. REVIEW OF SYSTEMS The patient denies headache, visual changes, neck pain, chest pain, shortness of breath, abdominal pain, nausea or vomiting, recent weight loss or numbness or tingling of extremities. She complains of right ankle pain. The pain is worse with movement. PHYSICAL EXAMINATION GENERAL: The patient is a pleasant 76-year-old female in no acute distress. She is awake and alert. She is alert and oriented x3. She appears well-developed, well-nourished. VITAL SIGNS: Temperature 98.7, pulse 84, respirations 17, blood pressure 118/77, O2 sat 97% on room air. HEAD: The patient is normocephalic. Pupils are equal. NECK: Soft, nontender. Trachea is midline. ABDOMEN: Soft, nontender, nondistended. EXTREMITIES: Examination of bilateral upper extremities reveals no pain with shoulder, elbow or wrist motion. She has intact sensation in all fingers. She has good capillary refill in all fingers. Radial pulses are palpable. Sensation is intact in all fingers. Examination of the left leg reveals no pain with hip, knee or ankle motion. Skin is intact. Dorsalis pedis pulse is palpable. Sensation is intact. Examination of the right leg reveals no pain with hip or knee motion. She has mild swelling of the ankle. Skin is intact. Dorsalis pedis pulse is palpable. Sensation is intact in all toes. X-RAYS X-rays of right ankle were reviewed. X-rays revealed a mildly displaced right ankle fracture and this appears to be a trimalleolar fracture. IMPRESSION Right ankle trimalleolar fracture. PLAN The treatment options were discussed with the patient. At this point I would recommend open reduction fixation of right ankle. The risks of surgery include bleeding, infection, injury to arteries, nerves and blood vessels, wound complications with infection, painful hardware, ankle stiffness, loss of motion as well as medical complications including blood clot, stroke, heart attack and . All questions were answered. I will plan on surgery today. A mid-level provider in my office, nurse practitioner or PA, may see this patient on a follow-up basis and continue to implement the objective of this plan including: Starting or adjusting medications, injections of muscle, tendon, bursa or joints, cast application, orthotic or brace application, physical therapy, further radiographic studies including x-ray, MRI, CT, ultrasounds or bone scan, vascular studies, neurologic studies, or other specialist consultations, and proceeding with surgical management as appropriate. MD GABRIELLE Lopez/KAYY /9:39 AM /9:44 AM
[2017-01-24] MEDS ORDERED: WALKER/ADULT/FO1 MIS (10:08)
[2017-01-24] MEDS ORDERED: WHEEMIS3 (10:08)
[2017-01-24] MEDS ORDERED: HYDR-3580 PO (10:08)
--- NOTE | 2017-01-24 10:09 | HHI.FF ---
Face to Face Verification Diagnosis: (1) Bimalleolar ankle fracture Physical Therapy Gait training Right LE Weight Bearing: Non WB Nursing Dressing Changes: Do not change dressing I have seen patient Carolee Viramontes on 01/24/17. My clinical findings support the need for the requested home health care services because: Ltd mobility - disease progression I certify that my clinical findings support that this patient is homebound because: Post-op weakness Jared Davies/Disability Benefits Specialist PA Jan 24, 2017 10:09
[2017-01-24] MEDS ORDERED: *morphine SULFATE 8 MG/ML PERIprocedure ONLY ONE ×2 (10:13→10:30)
--- NOTE | 2017-01-24 12:07 | RADRPT ---
EXAM DATE/TIME: 01/24/2017 09:20 [facility] COMPARISON: ANKLE RIGHT LIMITED (AP&LAT), January 23, 2017, 14:01. INDICATIONS : Open reduction internal fixation right ankle. MEDICAL HISTORY : None. SURGICAL HISTORY : None. ENCOUNTER: Initial ACUITY: 1 day PAIN SCORE: Non-responsive. LOCATION: Right Ankle FINDINGS: The patient is status post ORIF of distal fibular and tibial fractures. The bones are well aligned. T he ankle mortise is intact. CONCLUSION: Status post ORIF of distal fibular and tibial fractures with good alignment noted. Julio Cesar Quintana MD on January 24, 2017 at 12:04 Board Certified Radiologist. This report was verified electronically.
[2017-01-24] MEDS ORDERED: DO NOT ADM ANY ANTICOAGULANT DRUGS PRN (12:30)
[2017-01-24] MEDS: ceFAZolin 2 GM PREMIX 50 ML IV SCH ×2 (13:31→22:02)
[2017-01-24] MEDS: SODIUM CHLORIDE 0.9% FLUSH 10 ML FLUSH IV FLUSH SCH ×2 (13:39→22:09)
[2017-01-24] MEDS: PRAVASTATIN SOD 20 MG TAB PO SCH (13:39)
[2017-01-24] MEDS: CITALOPRAM HYDROBROMIDE 20 MG TAB PO SCH (13:39)
[2017-01-24] MEDS: FLUTICASONE PROPIONATE 50 MCG/ACT 16 GM NASAL SPRAY EACH NARE SCH ×2 (13:40→22:02)
[2017-01-24] MEDS: SODIUM CHLOR 0.9% 1000 ML INJ 1,000 ML IV SCH ×2 (13:40→17:24)
[2017-01-24] MEDS: DOCUSATE SODIUM 50 MG/SENNA 8.6 MG TAB PO SCH ×2 (13:41→22:03)
--- NOTE | 2017-01-24 14:42 | HHI.FPPN ---
Subjective Remarks Pt. seen and examined; discussed with the medicine team. This is a 76 yo female who had injured her low back lifting a couple weeks ago and had pain patches on her back over which she applied a heating pad and slept on this through the night. When she tried to pull up her nightgown this a.m. it had stuck to the pads and she experienced significant pain which caused near syncope, and she went down on her ankle and experienced pain right away. wasn't able to get her to stand so took her to urgent care where x-ray showed bimalleolar fracture right ankle. History of near syncope when she experiences pain, especially over the past 5 years. Allergy to IV contrast. Has help at home with daughter and . Would like home health for CABIN[employer], dressing changes and PT. Will need to be non- weight bearing X2 weeks. See H&P for this admission for additional historical details. When seen today she is post-op, still slightly groggy but coherent and pleasant. She is not having pain at this point. Spoke with nurse who will transition her to po pain meds once she eats. Objective Vitals Vital Signs Date Time Temp Pulse Resp B/P (MAP) Pulse Ox O2 Delivery O2 Flow Rate FiO2 01/24/17 11:00 96.6 88 18 123/58 (79) 100 01/24/17 10:50 98.1 85 20 118/56 (76) 85 Nasal Cannula 2 01/24/17 10:45 98.1 85 20 118/56 (76) 85 Nasal Cannula 2 01/24/17 10:30 82 22 129/57 (81) 82 Nasal Cannula 2 01/24/17 10:15 84 22 133/66 (88) 99 Nasal Cannula 2 01/24/17 09:56 98.1 87 22 121/60 (80) 96 Nasal Cannula 2 01/24/17 04:13 98.7 84 17 118/77 (91) 97 01/24/17 00:52 93 21 01/24/17 00:22 99.3 79 17 137/78 (97) 96 01/23/17 21:40 80 01/23/17 20:45 99.0 77 17 172/79 (110) 96 01/23/17 15:35 77 18 96 Room Air 01/23/17 15:14 98.2 73 16 177/75 (109) 98 I/O 01/23/17 01/23/17 01/23/17 01/24/17 01/24/17 01/24/17 07:00 15:00 23:00 07:00 15:00 23:00 Intake Total 240 ml 0 ml 500 ml Output Total 30 ml Balance 240 ml 0 ml 470 ml Intake Oral 240 ml 0 ml Other 500 ml Output Estimated Blood Loss 30 ml # Voids 1 1 # Bowel Movements 0 0 Result Diagram: 01/24/17 0503 01/24/17 0503 Other Results Laboratory Tests Test 01/23/17 15:50 01/23/17 17:00 01/24/17 05:03 White Blood Count 10.8 TH/MM3 8.5 TH/MM3 Red Blood Count 4.24 MIL/MM3 3.73 MIL/MM3 Hemoglobin 13.3 GM/DL 11.9 GM/DL Hematocrit 39.1 % 34.3 % Mean Corpuscular Volume 92.2 FL 92.0 FL Mean Corpuscular Hemoglobin 31.4 PG 32.0 PG Mean Corpuscular Hemoglobin Concent 34.1 % 34.8 % Red Cell Distribution Width 12.7 % 12.4 % Platelet Count 218 TH/MM3 184 TH/MM3 Mean Platelet Volume 9.4 FL 9.7 FL Neutrophils (%) (Auto) 78.3 % 58.8 % Lymphocytes (%) (Auto) 13.3 % 25.7 % Monocytes (%) (Auto) 7.0 % 10.8 % Eosinophils (%) (Auto) 1.0 % 4.3 % Basophils (%) (Auto) 0.4 % 0.4 % Neutrophils # (Auto) 8.4 TH/MM3 5.0 TH/MM3 Lymphocytes # (Auto) 1.4 TH/MM3 2.2 TH/MM3 Monocytes # (Auto) 0.8 TH/MM3 0.9 TH/MM3 Eosinophils # (Auto) 0.1 TH/MM3 0.4 TH/MM3 Basophils # (Auto) 0.0 TH/MM3 0.0 TH/MM3 CBC Comment DIFF FINAL DIFF FINAL Differential Comment Prothrombin Time 10.3 SEC Prothromb Time International Ratio 1.0 RATIO Activated Partial Thromboplast Time 22.6 SEC Blood Urea Nitrogen 15 MG/DL 15 MG/DL Creatinine 0.77 MG/DL 0.70 MG/DL Random Glucose 105 MG/DL 103 MG/DL Total Protein 8.1 GM/DL Albumin 4.1 GM/DL Calcium Level 9.3 MG/DL 8.8 MG/DL Magnesium Level 1.9 MG/DL Alkaline Phosphatase 61 U/L Aspartate Amino Transf (AST/SGOT) 23 U/L Alanine Aminotransferase (ALT/SGPT) 25 U/L Total Bilirubin 0.3 MG/DL Sodium Level 138 MEQ/L 140 MEQ/L Potassium Level 3.6 MEQ/L 3.5 MEQ/L Chloride Level 104 MEQ/L 106 MEQ/L Carbon Dioxide Level 27.4 MEQ/L 27.3 MEQ/L Anion Gap 7 MEQ/L 7 MEQ/L Estimat Glomerular Filtration Rate 73 ML/MIN 82 ML/MIN Total Creatine Kinase 126 U/L Creatine Kinase MB 3.1 NG/ML Troponin I LESS THAN 0.02 NG/ML Urine Color YELLOW Urine Turbidity CLEAR Urine pH 5.5 Urine Specific [place] 1.019 Urine Protein TRACE mg/dL Urine Glucose (UA) NEG mg/dL Urine Ketones NEG mg/dL Urine Occult Blood NEG Urine Nitrite NEG Urine Bilirubin NEG Urine Urobilinogen LESS THAN 2.0 MG/DL Urine Leukocyte Esterase SMALL Urine RBC 5 /hpf Urine WBC 5 /hpf Urine Squamous Epithelial Cells 3 /hpf Urine Hyaline Casts 1 /lpf Urine Mucus FEW /lpf Microscopic Urinalysis Comment CULT NOT INDICATED Imaging Last Impressions Ankle X-Ray 01/24/17 0000 Signed Impressions: Service Date/Time: Tuesday, January 24, 2017 09:20 - CONCLUSION: Status post ORIF of distal fibular and tibial fractures with good alignment noted. Julio Cesar Quintana MD Head CT 01/23/17 1540 Signed Impressions: Service Date/Time: Monday, January 23, 2017 15:50 - CONCLUSION: 1. No focal or acute intracranial hemorrhage. 2. 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 3. Bilateral chronic white matter changes. Huy Shepherd MD Chest X-Ray 01/23/17 1540 Signed Impressions: Service Date/Time: Monday, January 23, 2017 15:53 - CONCLUSION: No acute disease. Huy Shepherd MD Objective Remarks O. CONSTITUTIONAL/GEN: normally nourished, in NAD. Alert, pleasant. EYES: conjunctiva normal, PERRLA, EOMI. ENT: Mouth and pharynx normal. NECK: supple LUNGS: clear A-P, respiratory effort is normal. CARDIOVASCULAR: RR without murmur or gallop. No significant edema. GI/ABD: soft without masses, without organomegaly. BS + NEURO: No focal deficits. SKIN: color normal, no rashes noted. HEME/LYMPH: no bruising, petechia or significant adenopathy MUSC: Extremities are normal in appearance; has plaster splint and NADINE wrap on right lower extremity. PSYCH/MENTAL STATUS: Alert and oriented x 3. A/P Assessment and Plan 76 yr old F admitted for bimalleolar fracture of R ankle due to mechanical fall secondary to syncope (most likely vasovagal). S/P OR today. Cautioned patient against ASA or similar products, discussed bowel regimen, adequate calcium intake, non-weight bearing for 2 weeks. Discharge Planning Spoke with case mgmt re home health agency Attending Attestation Patient seen and examined. Case reviewed and discussed with the resident team. Agree with plan of care as discussed with me and documented in the resident note. Problem List: (1) Bimalleolar ankle fracture ICD Codes: S82.843A - Displaced bimalleolar fracture of unspecified lower leg, initial encounter for closed fracture Status: Acute Plan: CXR at urgent care clinic revealed bimalleolar fracture with diffuse soft tissue swelling of R ankle. Orthopedic consulted. ED physician spoke with Dr. Osei, patient will need surgery in the AM. NPO after midnight, MIVF Pain control: [place] 5mg 1 tab PO q4 pain 3-5, [place] 7.5 mg PO q4h pain 6-10, morphine 2mg IV push q3h for breakthrough pain (2) Syncope ICD Codes: R55 - Syncope and collapse Status: Resolved Plan: Pt reports multiple syncopal episodes in the past, related to abdominal pain, resolved with defecation and lying down. Most likely vasovagal due to hx. EKG sinus rhythm Monitor with telemetry Pt reports never having carotid US or Echo, may consider as outpatient work-up Normal stress test done [address] Shafer Colonoscopy for abdominal pain 5 years ago, several polyps removed (3) Anxiety ICD Codes: F41.9 - Anxiety disorder, unspecified Plan: Continue home med: Citalopram 20mg BID Ativan 1mg PO HS (4) Rosacea ICD Codes: L71.9 - Rosacea, unspecified Plan: Held home med: Doxycycline 20mg daily (5) Arthritis ICD Codes: M19.90 - Unspecified osteoarthritis, unspecified site Plan: Held home med: Celecoxib 200mg BID (6) HLD (hyperlipidemia) ICD Codes: E78.5 - Hyperlipidemia, unspecified Plan: Continue Pravastatin 20mg daily (7) Nutrition, metabolism, and development symptoms ICD Codes: R63.8 - Other symptoms and signs concerning food and fluid intake Plan: Regular diet Fluids: tkvo Electrolytes: monitor and replace as needed DVT ppx: SCDs PT to eval and treat, may need rehab after surgery Case management consult Problem Qualifiers (1) Bimalleolar ankle fracture: (2) Syncope: Qualified Codes: R55 - Syncope and collapse Juliet Pate MD Jan 24, 2017 14:42
[2017-01-24] MEDS: ACETAMINOPHEN/HYDROcodone 325 MG/7.5 MG TAB PO PRN ×2 (17:33→22:03)
--- NOTE | 2017-01-24 17:42 | EKG ---
Date Performed: 01/23/2017 Time Performed: 15:49:46 PTAGE: 76 years EKG: Sinus rhythm NORMAL ECG NO PREVIOUS TRACING DOCTOR: Esau Rojas Interpretating Date/Time 01/24/2017 17:41:20
[2017-01-24] MEDS: LORazepam 1 MG TAB PO PRN (22:03)
[2017-01-25 00:21] VITALS: PULSE 90
[2017-01-25 00:30] VITALS: BP 143/67; PULSE 91; RESP 17; TEMP 98.5; O2SAT 95
[2017-01-25] MEDS: SODIUM CHLOR 0.9% 1000 ML INJ 1,000 ML IV SCH (02:06)
[2017-01-25] MEDS: ACETAMINOPHEN/HYDROcodone 325 MG/7.5 MG TAB PO PRN ×3 (02:31→13:43)
[2017-01-25] MEDS: MORPHINE SULFATE 4 MG/ML INJ IV PUSH PRN ×2 (03:11→11:39)
[2017-01-25 04:00] VITALS: BP 140/66; PULSE 86; RESP 17; TEMP 98; O2SAT 96
[2017-01-25] MEDS: ceFAZolin 2 GM PREMIX 50 ML IV SCH (06:43)
--- NOTE | 2017-01-25 07:00 | PD.ORT.PN ---
Subjective Subjective Remarks POD 1 s/p ORIF right ankle doing well. pain controlled. states pain but stable. Objective Vitals Vital Signs Date Time Temp Pulse Resp B/P (MAP) Pulse Ox O2 Delivery O2 Flow Rate FiO2 01/25/17 04:00 98.0 86 17 140/66 (90) 96 01/25/17 03:20 18 01/25/17 03:20 18 01/25/17 00:30 98.5 91 17 143/67 (92) 95 01/25/17 00:21 90 01/24/17 23:49 Room Air 01/24/17 20:17 97 01/24/17 20:00 98.4 97 16 124/63 (83) 94 01/24/17 16:00 98.4 96 18 123/60 (81) 92 01/24/17 11:00 96.6 88 18 123/58 (79) 100 01/24/17 10:50 98.1 85 20 118/56 (76) 85 Nasal Cannula 2 01/24/17 10:45 98.1 85 20 118/56 (76) 85 Nasal Cannula 2 01/24/17 10:30 82 22 129/57 (81) 82 Nasal Cannula 2 01/24/17 10:15 84 22 133/66 (88) 99 Nasal Cannula 2 01/24/17 09:56 98.1 87 22 121/60 (80) 96 Nasal Cannula 2 I/O 01/24/17 01/24/17 01/24/17 01/25/17 01/25/17 01/25/17 07:00 15:00 23:00 07:00 15:00 23:00 Intake Total 0 ml 980 ml 480 ml Output Total 30 ml Balance 0 ml 950 ml 480 ml Intake Oral 0 ml 480 ml 480 ml Other 500 ml Output Estimated Blood Loss 30 ml # Voids 1 1 2 # Bowel Movements 0 0 0 Result Diagram: 01/24/17 0503 01/24/17 0503 Imaging Last [address] 01/23/17 1540 Signed Impressions: Service Date/Time: Monday, January 23, 2017 15:50 - CONCLUSION: 1. No focal or acute intracranial hemorrhage. 2. 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 3. Bilateral chronic white matter changes. Huy Shepherd MD Chest X-Ray 01/23/17 1540 Signed Impressions: Service Date/Time: Monday, January 23, 2017 15:53 - CONCLUSION: No acute disease. Huy Shepherd MD Objective Remarks RLE: +short leg splint. intact. NVI Assessment & Plan Assessment and Plan 1) Right bimalleolar ankle fracture s/p ORIF - POD 1 -NWB -maintain splint at all times -elevate -ortho clear for DC home with HHC -f/u with Lianne or PA in 2 weeks Jared Davies PA/Marketing Project Manager PA Jan 25, 2017 07:00
[2017-01-25] MEDS ORDERED: COMMODE 3-IN-11 MIS (07:01)
[2017-01-25 08:00] VITALS: BP 149/63; PULSE 80; RESP 18; TEMP 98.5; O2SAT 95
[2017-01-25] MEDS: DOCUSATE SODIUM 50 MG/SENNA 8.6 MG TAB PO SCH (08:54)
[2017-01-25] MEDS: FLUTICASONE PROPIONATE 50 MCG/ACT 16 GM NASAL SPRAY EACH NARE SCH (08:54)
[2017-01-25] MEDS: CITALOPRAM HYDROBROMIDE 20 MG TAB PO SCH (08:54)
[2017-01-25] MEDS: PRAVASTATIN SOD 20 MG TAB PO SCH (08:54)
[2017-01-25] MEDS: SODIUM CHLORIDE 0.9% FLUSH 10 ML FLUSH IV FLUSH SCH (08:55)
[2017-01-25 12:00] VITALS: BP 137/63; PULSE 87; RESP 18; TEMP 98.7; O2SAT 95
--- NOTE | 2017-01-25 12:41 | HHI.FF ---
Face to Face Verification Diagnosis: (1) Bimalleolar ankle fracture Physical Therapy Order: Evaluate and Treat, Strength and gait training Home Health Aide Order: To Assist In: Bathing and personal care I have seen patient Carolee Viramontes on 01/25/17. My clinical findings support the need for the requested home health care services because: Limited ability to care for self I certify that my clinical findings support that this patient is homebound because: Unsteady gait/balance José Luis Hollins MD R2 Jan 25, 2017 12:41
--- NOTE | 2017-01-25 13:45 | HHI.FPPN ---
Subjective Remarks No acute events overnight. Pt doing well this AM, sitting up in bed, eating breakfast. She is glad to be going home today. No BM, but passing gas. She denies SOB, CP, abdominal pain, and N/V. (Etta Loomis MD R1) Objective Vitals Vital Signs Date Time Temp Pulse Resp B/P (MAP) Pulse Ox O2 Delivery O2 Flow Rate FiO2 01/25/17 10:57 Room Air 01/25/17 08:00 98.5 80 18 149/63 (91) 95 01/25/17 04:00 98.0 86 17 140/66 (90) 96 01/25/17 03:20 18 01/25/17 03:20 18 01/25/17 00:30 98.5 91 17 143/67 (92) 95 01/25/17 00:21 90 01/24/17 23:49 Room Air 01/24/17 20:17 97 01/24/17 20:00 98.4 97 16 124/63 (83) 94 01/24/17 16:00 98.4 96 18 123/60 (81) 92 I/O 01/24/17 01/24/17 01/24/17 01/25/17 01/25/17 01/25/17 06:59 14:59 22:59 06:59 14:59 22:59 Intake Total 0 ml 980 ml 530 ml Output Total 30 ml Balance 0 ml 950 ml 530 ml Intake Oral 0 ml 480 ml 480 ml IV Total 50 ml Other 500 ml Output Estimated Blood Loss 30 ml # Voids 1 1 2 # Bowel Movements 0 0 0 (Etta Loomis MD R1) Result Diagram: 01/24/17 0503 01/24/17 0503 Objective Remarks O. CONSTITUTIONAL/GEN: normally nourished, in NAD. Alert, pleasant. EYES: conjunctiva normal, PERRLA, EOMI. ENT: Mouth and pharynx normal. NECK: supple LUNGS: clear A-P, respiratory effort is normal. CARDIOVASCULAR: RR without murmur or gallop. No significant edema. GI/ABD: soft without masses, without organomegaly. BS + NEURO: No focal deficits. SKIN: color normal, no rashes noted. HEME/LYMPH: no bruising, petechia or significant adenopathy MUSC: Extremities are normal in appearance; right lower extremity wrapped in splint, able to move toes, sensation intact in toes PSYCH/MENTAL STATUS: Alert and oriented x 3. (Etta Loomis MD R1) A/P Assessment and Plan 76 yr old F admitted for bimalleolar fracture of R ankle due to mechanical fall secondary to syncope (most likely vasovagal). POD 1 s/p ORIF Cautioned patient against ASA or similar products, discussed bowel regimen, adequate calcium intake, non-weight bearing for 2 weeks. Discharge Planning Discharge today with home health PT (Etta Loomis MD R1) Attending Attestation Patient seen and examined. Case reviewed and discussed with the resident team. Agree with plan of care as discussed with me and documented in the resident note. (Juliet Pate MD) Problem List: (1) Bimalleolar ankle fracture ICD Codes: S82.843A - Displaced bimalleolar fracture of unspecified lower leg, initial encounter for closed fracture Status: Acute Plan: POD #1 right bimalleolar ankle fracture s/p ORIF Ortho clear for DC home, f/u with Dr. Abdalla or PA in 2 weeks (2) Syncope ICD Codes: R55 - Syncope and collapse Status: Resolved Plan: Pt reports multiple syncopal episodes in the past, related to abdominal pain, resolved with defecation and lying down. Most likely vasovagal due to hx. EKG sinus rhythm Monitor with telemetry Pt reports never having carotid US or Echo, may consider as outpatient work-up Normal stress test done [address] Shafer Colonoscopy for abdominal pain 5 years ago, several polyps removed (3) Anxiety ICD Codes: F41.9 - Anxiety disorder, unspecified Plan: Continue home med: Citalopram 20mg BID Ativan 1mg PO HS (4) Rosacea ICD Codes: L71.9 - Rosacea, unspecified Plan: Held home med: Doxycycline 20mg daily (5) Arthritis ICD Codes: M19.90 - Unspecified osteoarthritis, unspecified site Plan: Held home med: Celecoxib 200mg BID (6) HLD (hyperlipidemia) ICD Codes: E78.5 - Hyperlipidemia, unspecified Plan: Continue Pravastatin 20mg daily (7) Nutrition, metabolism, and development symptoms ICD Codes: R63.8 - Other symptoms and signs concerning food and fluid intake Plan: Regular diet Fluids: tkvo Electrolytes: monitor and replace as needed DVT ppx: SCDs PT - home health PT Case management consult (Etta Loomis MD R1) Problem Qualifiers (1) Bimalleolar ankle fracture: (2) Syncope: Qualified Codes: R55 - Syncope and collapse Etta Loomis MD R1 Jan 25, 2017 13:45 Juliet Pate MD Jan 26, 2017 10:28
--- NOTE | 2017-01-25 14:03 | HHI.DS ---
Discharge Summary Admission Date Jan 23, 2017 at 17:33 Admitting Diagnosis ankle fracture, syncope (1) Bimalleolar ankle fracture Plan: CXR at urgent care clinic revealed bimalleolar fracture with diffuse soft tissue swelling of R ankle. Orthopedic consulted. ED physician spoke with Dr. Osei, patient will need surgery in the AM. NPO after midnight, MIVF Pain control: [place] 5mg 1 tab PO q4 pain 3-5, [place] 7.5 mg PO q4h pain 6-10, morphine 2mg IV push q3h for breakthrough pain ICD Codes: S82.843A - Displaced bimalleolar fracture of unspecified lower leg, initial encounter for closed fracture Status: Acute (2) Syncope Plan: Pt reports multiple syncopal episodes in the past, related to abdominal pain, resolved with defecation and lying down. Most likely vasovagal due to hx. EKG sinus rhythm Monitor with telemetry Pt reports never having carotid US or Echo, may consider as outpatient work-up Normal stress test done [address] Shafer Colonoscopy for abdominal pain 5 years ago, several polyps removed ICD Codes: R55 - Syncope and collapse Status: Resolved (3) Anxiety Plan: Continue home med: Citalopram 20mg BID Ativan 1mg PO HS ICD Codes: F41.9 - Anxiety disorder, unspecified (4) Rosacea Plan: Held home med: Doxycycline 20mg daily ICD Codes: L71.9 - Rosacea, unspecified (5) Arthritis Plan: Held home med: Celecoxib 200mg BID ICD Codes: M19.90 - Unspecified osteoarthritis, unspecified site (6) HLD (hyperlipidemia) Plan: Continue Pravastatin 20mg daily ICD Codes: E78.5 - Hyperlipidemia, unspecified (7) Nutrition, metabolism, and development symptoms Plan: Regular diet Fluids: tkvo Electrolytes: monitor and replace as needed DVT ppx: SCDs PT to eval and treat, may need rehab after surgery Case management consult ICD Codes: R63.8 - Other symptoms and signs concerning food and fluid intake Brief History 76 yr old F w/ hx of syncopal episodes and HLD, presents with ankle fracture after mechanical fall due to syncope. Patients reports 1week hx back pain from heavy lifting. She used two hot/cold patches in addition to a heating pad on her lower back last night. When she woke up this morning, she was trying to remove the patches. However, the patches were stuck to her skin and she began to feel a lot of pain as she was pulling them off. She started to turn cold and lightheaded. She tried laying down and put too much weight on her right ankle. She denies hitting her head and is unsure if she had LOC. The last thing she remember was hitting the hardwood floor and was unable to get up afterwards. Luckily, her was nearby and immediately brought her to the urgent care. X-ray of her right ankle revealed bimalleolar fracture. She denies shaking, CP, SOB, urinary incontinence, palpitations, vision changes, weakness in arms/legs, LUNA, and N/V. She's had these syncopal episodes for the past 5 years and they are usually brought on by pain. Her firs episode happened 5 years ago. She was sitting on the toilet and the next thing she knew she was on the floor. She did not get evaluate by a physician then. Her next couple of episodes have been associated with stomach pain (intermittent sharp pain in lower abdominal quadrants) and relieved with bowel movements. She reports "feeling like her body is turning cold and starts to spread." She had a coloscopy 5 years ago and several polyps were removed. She states that she is able to control these syncopal episodes by lying down. PCP, Dr. Dawson CBC/BMP: 01/24/17 0503 01/24/17 0503 Significant Findings Laboratory Tests Test 01/23/17 15:50 01/23/17 17:00 01/24/17 05:03 Neutrophils (%) (Auto) 78.3 % (16.0-70.0) Neutrophils # (Auto) 8.4 TH/MM3 (1.8-7.7) Activated Partial Thromboplast Time 22.6 SEC (24.3-30.1) Estimat Glomerular Filtration Rate 73 ML/MIN (>89) 82 ML/MIN (>89) Troponin I LESS THAN 0.02 NG/ML Urine Leukocyte Esterase SMALL (NEG) Urine RBC 5 /hpf (0-3) Urine Mucus FEW /lpf (OCC) Red Blood Count 3.73 MIL/MM3 (4.00-5.30) Hematocrit 34.3 % (35.0-46.0) Monocytes (%) (Auto) 10.8 % (0.0-8.0) Eosinophils (%) (Auto) 4.3 % (0.0-4.0) PE at Discharge O. CONSTITUTIONAL/GEN: normally nourished, in NAD. Alert, pleasant. EYES: conjunctiva normal, PERRLA, EOMI. ENT: Mouth and pharynx normal. NECK: supple LUNGS: clear A-P, respiratory effort is normal. CARDIOVASCULAR: RR without murmur or gallop. No significant edema. GI/ABD: soft without masses, without organomegaly. BS + NEURO: No focal deficits. SKIN: color normal, no rashes noted. HEME/LYMPH: no bruising, petechia or significant adenopathy MUSC: Extremities are normal in appearance; has plaster splint and NADINE wrap on right lower extremity. PSYCH/MENTAL STATUS: Alert and oriented x 3. Pt Condition on Discharge: Stable Discharge Disposition: Discharge Home Discharge Instructions DIET: Follow Instructions for: As Tolerated, No Restrictions Activities you can perform: Weight Bearing as Etta Richter MD R1 Jan 25, 2017 14:03
== END 2017-01-25 14:30 | disposition home health service (06) | DRG 494 ==
LOC: NEPC 15:12 → NEDA 17:17 → OBSVTOIN 17:33 → N06B 19:28
PROVIDERS: ADMIT Family Medicine; ATTEND Family Medicine
PROC: 0QSG04Z Reposition Right Tibia with Internal Fixation Device, Open Approach (ICD-10-PCS; 2017-01-24)
PROC: 0QSJ04Z Reposition Right Fibula with Internal Fixation Device, Open Approach (ICD-10-PCS; principal; 2017-01-24 08:31)
DX: S82.851A Displaced trimalleolar fracture of right lower leg, initial encounter for closed fracture (principal); R55 Syncope and collapse; F41.9 Anxiety disorder, unspecified; W18.39XA Other fall on same level, initial encounter; Y93.89 Activity, other specified; Y92.009 Unspecified place in unspecified non-institutional (private) residence as the place of occurrence of the external cause; Z86.010 Personal history of colon polyps; L71.9 Rosacea, unspecified; M19.90 Unspecified osteoarthritis, unspecified site; E78.5 Hyperlipidemia, unspecified
CPT/HCPCS: 70450; 71010; 73600; 76000; 80048; 80053; 81001; 82550; 82552; 83735; 84484; 85025; 85610; 85730; 93005; 94150; J0690; J1580; J2270; J3370; J7030

== ENCOUNTER 2017-02-22 11:13 | Inpatient (IN) | payer MEDICARE ==
[~2017-02-22] VITALS: Ht 162.6 cm; Wt 73.0 kg
[~2017-02-22 11:13] MED LIST changes: +BENA25TA6; +CITA20TA4 PO; +COMMODE 3-IN-11 MIS; +DOXY20TA3 PO; +FLUT50SP EACH NARE; +HYDR-3580 PO; +LORA1TAB12 PO; +MULTTAB67 PO; +VITA10002 PO; +VITA2000 PO; +VITA500T83 PO; +WALKER/ADULT/FO1 MIS; +WHEEMIS3; +[UNRECOGNIZED DRUG - OTHER]
[2017-02-22 11:15] VITALS: BP 132/82; PULSE 100; RESP 16; TEMP 98.4; O2SAT 96
--- NOTE | 2017-02-22 12:20 | PD ---
HPI Chief Complaint: Skin Problem Time Seen by Provider: 12:00 Travel History International Travel<30 days: No Contact w/Intl Traveler<30days: No Traveled to known affect area: No History of Present Illness HPI 77 -year-old female presents to the emergency department for evaluation of right ankle infection. Patient states she fell on January 23, 2017. She has surgery here by Dr. Larios in her right ankle on January 24, 2017. She went for a 3 week postoperative visit after and there is noticed to be some erythema surrounding the incision site. She was started on Bactrim and doxycycline. She was supposed to be seen in another 3 weeks, by her family member became concerned and took a picture to Dr. Larios who referred her to the emergency department for IV antibiotics. The patient states that she has had a max temp 100.6 which is approximately one week ago. Her daughter at bedside states that it did initially improve with certain antibiotics, but has worsened again. Patient denies any other symptoms or complaints at this time. She is taking antibiotics as directed. Pain is worse with palpation of the area. Her daughter has been changing the dressings who is a nurse. Patient has been nonweightbearing as instructed. Moderate Severity. PFSH Past Medical History Anxiety: Yes High Cholesterol: Yes Past Surgical History Other Surgery: Yes (LUMPECTOMY X3) Social History Alcohol Use: Yes (OCC) Tobacco Use: No Substance Use: No Allergies-Medications (Allergen,Severity, Reaction): Coded Allergies: iodine (Verified Allergy, Unknown, 01/23/17) Reported Meds & Prescriptions Reported Meds & Active Scripts Active Commode 3-in-1 (Device) 1 Mis Mis Ea .ROUTE DIRECTED Hydrocodone-Acetaminophen 7.5 Mg-325 Mg Tab 1 Tab PO Q4H PRN Wheelchair (Device) 1 Mis Mis Ea .ROUTE DIRECTED Walker/Adult/Folding (Device) 1 Mis Mis Ea .ROUTE DIRECTED Reported Colace Clear (Docusate Sodium) 50 Mg Cap Sulfamethoxazole-Trimethoprim 800-160 Mg Tab 1 Tab PO BID Senokot S (Sennosides-Docusate Sodium) 8.6-50 Mg Tab 1 Tab PO DAILY Duavee (Conjugated Estrogens-Bazedoxifene) 0.45-20 Mg Tab 1 Tab PO DAILY [Duova] Benadryl Allergy (Diphenhydramine HCl) 25 Mg Tablet Vitamin D3 (Cholecalciferol) 2,000 Unit Cap 2,000 Units PO DAILY Vitamin C ER (Ascorbic Acid) 500 Mg Jovanna 1,000 Mg PO Vitamin B-12 (Cyanocobalamin) 1,000 Mcg Tab 1,000 Mcg PO DAILY Multiple Vitamin 1 Tab 1 Tab PO DAILY Fluticasone Nasal [place] 50 Mcg/Act Naspr 50 Mcg EACH NARE BID 50 mcg/spray Lorazepam 1 Mg Tab 1 Mg PO HS PRN Doxycycline Hyclate 20 Mg Tab 100 Mg PO BID Citalopram (Citalopram Hydrobromide) 20 Mg Tab 20 Mg PO DAILY Aspirin EC (Aspirin) 81 Mg Tabdr 81 Mg PO DAILY Pravastatin 20 Mg Tab 40 Mg PO DAILY Review of Systems Except as stated in HPI: all other systems reviewed are Neg Physical Exam Narrative GENERAL: Well-nourished, well-developed elderly female patient, afebrile. SKIN: Focused skin assessment warm/dry. Patient has incision to the right lateral and medial ankle with surrounding erythema, but no active drainage. No fluctuance or evidence of abscess. HEAD: Normocephalic. Atraumatic. EYES: No scleral icterus. No injection or drainage. NECK: Supple, trachea midline. No JVD or lymphadenopathy. CARDIOVASCULAR: Regular rate and rhythm without murmurs, gallops, or rubs. RESPIRATORY: Breath sounds equal bilaterally. No accessory muscle use. Lungs sounds are clear to auscultation. GASTROINTESTINAL: Abdomen soft, non-tender, nondistended. MUSCULOSKELETAL: No cyanosis, or edema. BACK: Nontender without obvious deformity. No CVA tenderness. Data Data Last Documented VS Vital Signs Date Time Temp Pulse Resp B/P (MAP) Pulse Ox O2 Delivery O2 Flow Rate FiO2 02/22/17 12:25 18 02/22/17 11:15 98.4 100 132/82 (99) 96 Orders Orders Complete Blood Count With Diff (02/22/17 12:08) Prothrombin Time / Inr (Pt) (02/22/17 12:08) Act Partial Throm Time (Ptt) (02/22/17 12:08) Lactic Acid Sepsis Protocol (02/22/17 12:08) Blood Culture (02/22/17 12:08) Ecg Monitoring (02/22/17 12:08) Iv Access Insert/Monitor (02/22/17 12:08) Oximetry (02/22/17 12:08) Oxygen Administration (02/22/17 12:08) Basic Metabolic Panel (Bmp) (02/22/17 12:08) Westergren Sedimentation Rate (02/22/17 12:08) C-Reactive Protein (Crp) (02/22/17 12:08) Piperacil-Tazo 3.375 Gm Premix (Zosyn 3. (02/22/17 13:00) Vancomycin Inj (Vancomycin Inj) (02/22/17 13:15) Consult Orthopedic (02/22/17 ) (Hub Use Only)Inp Phy Cons/Ref (02/22/17 ) Labs Laboratory Tests Test 02/22/17 12:25 White Blood Count 6.4 TH/MM3 Red Blood Count 4.36 MIL/MM3 Hemoglobin 13.9 GM/DL Hematocrit 40.4 % Mean Corpuscular Volume 92.6 FL Mean Corpuscular Hemoglobin 31.9 PG Mean Corpuscular Hemoglobin Concent 34.5 % Red Cell Distribution Width 13.1 % Platelet Count 287 TH/MM3 Mean Platelet Volume 9.2 FL Neutrophils (%) (Auto) 63.4 % Lymphocytes (%) (Auto) 22.2 % Monocytes (%) (Auto) 11.4 % Eosinophils (%) (Auto) 2.3 % Basophils (%) (Auto) 0.7 % Neutrophils # (Auto) 4.0 TH/MM3 Lymphocytes # (Auto) 1.4 TH/MM3 Monocytes # (Auto) 0.7 TH/MM3 Eosinophils # (Auto) 0.1 TH/MM3 Basophils # (Auto) 0.0 TH/MM3 CBC Comment DIFF FINAL Differential Comment Prothrombin Time 10.7 SEC Prothromb Time International Ratio 1.1 RATIO Activated Partial Thromboplast Time 25.0 SEC Blood Urea Nitrogen 21 MG/DL Creatinine 0.97 MG/DL Random Glucose 130 MG/DL Calcium Level 9.2 MG/DL Sodium Level 135 MEQ/L Potassium Level 3.9 MEQ/L Chloride Level 103 MEQ/L Carbon Dioxide Level 21.9 MEQ/L Anion Gap 10 MEQ/L Estimat Glomerular Filtration Rate 56 ML/MIN Lactic Acid Level 2.4 mmol/L C-Reactive Protein LESS THAN 0.29 MG/DL MDM Medical Decision Making Medical Screen Exam Complete: Yes Emergency Medical Condition: Yes Medical Record Reviewed: Yes Differential Diagnosis Cellulitis versus sepsis versus infection of the hardware Narrative Course 77-year-old female presents to the emergency department sent by orthopedist, Dr. Larios, for infection to the incision site over the right ankle. CBC, BMP, sedimentation rate, CRP, lactic acid, blood cultures 2, PTT, PT/INR are ordered and pending. Page is placed to Dr. Larios to discuss care. Patient started vancomycin 1 g IV, Zosyn 3.375 g IV. CBC shows no acute abnormality. BMP shows no acute abnormality. CRP is less than 0.29. Lactic acid is 2.4. Coags are unremarkable. I spoke to HI Coleman, for Dr. Larios. He recommends consult to Dr. Larios as well as infectious disease. He believes the patient will need a PICC line to be discharged with. [facility] is paged for admission. Dr. uGnderson accepted admission. Diagnosis Primary Impression: Cellulitis of right ankle Admitting Information Admitting Physician Requests: Admit Mirta Gardiner Feb 22, 2017 12:20
[2017-02-22] MEDS ORDERED: SENN1TAB17 PO (12:40)
[2017-02-22] MEDS ORDERED: DOCU50CA9 (12:40)
[2017-02-22] MEDS ORDERED: CONJ1TAB PO (12:40)
[2017-02-22] MEDS ORDERED: SULF1TAB23 PO (12:40)
[2017-02-22 12:59] LABS: BASOPHIL % 0.7 % (0.0-2.0); EOSINOPHIL # 0.1 TH/MM3 (0-0.4); EOSINOPHIL % 2.3 % (0.0-4.0); HEMATOCRIT 40.4 % (35.0-46.0); HEMOGLOBIN 13.9 GM/DL (11.6-15.3); LYMPH % 22.2 % (9.0-44.0); LYMPHOCYTE # 1.4 TH/MM3 (1.0-4.8); MEAN CELL VOLUME 92.6 FL (80.0-100.0); MEAN CORPUSCULAR HEMOGLOBIN 31.9 PG (27.0-34.0); MEAN CORPUSCULAR HGB CONC 34.5 % (32.0-36.0); MEAN PLATELET VOLUME 9.2 FL (7.0-11.0); MONO % 11.4 % (0.0-8.0); MONOCYTE # 0.7 TH/MM3 (0-0.9); NEUT % 63.4 % (16.0-70.0); PLATELET COUNT 287 TH/MM3 (150-450); RED BLOOD COUNT 4.36 MIL/MM3 (4.00-5.30); RED CELL DISTRIBUTION WIDTH 13.1 % (11.6-17.2); WHITE BLOOD COUNT 6.4 TH/MM3 (4.0-11.0)
[2017-02-22] MEDS ORDERED: PIPERACIL-TAZO 3.375 GM PREMIX 50 ML IV ONE (13:00)
[2017-02-22] MEDS ORDERED: VANCOMYCIN INJ 200 ML IV ONE (13:00)
[2017-02-22 13:05] LABS: BICARBONATE 21.9 MEQ/L (21.0-32.0); BLOOD UREA NITROGEN 21 MG/DL (7-18); C-REACTIVE PROTEIN LESS THAN 0.29 MG/DL (0.00-0.30); CALCIUM 9.2 MG/DL (8.5-10.1); CHLORIDE 103 MEQ/L (98-107); CREATININE 0.97 MG/DL (0.50-1.00); GLOMERULAR FILTRATION RATE 56 ML/MIN (>89); GLUCOSE,RANDOM 130 MG/DL (74-106); SODIUM (NA) 135 MEQ/L (136-145)
[2017-02-22 13:10] LABS: LACTIC ACID SEPSIS PROTOCOL 2.4 mmol/L (0.4-2.0)
[2017-02-22 13:15] LABS: INTERNATIONAL NORMALIZED RATIO 1.1 RATIO; PROTHROMBIN TIME - PATIENT 10.7 SEC (9.8-11.6)
[2017-02-22] MEDS ORDERED: VANCOMYCIN 1,000 MG/NS 250 ML IV ONE ×2 (13:15)
--- NOTE | 2017-02-22 13:41 | HHI.HP ---
HPI Service [facility] Primary Care Physician Fer Dawson MD Admission Diagnosis right ankle cellulitis; s/p surgery; failed outpatient treatment Diagnoses: Chief Complaint: Right ankle infection, fever. Travel History International Travel<30 Days: No Contact w/Intl Traveler <30 Da: No Traveled to Known Affected Are: No History of Present Illness Ms. Viramontes is a very pleasant 77-year-old female with a history of recent fall status post ORIF for right sided bimalleolar ankle fracture on 01/24 presents to the emergency department on the advice of her orthopedic surgeon Dr. Larios due to persistent erythema around the surgical site despite using by mouth antibiotics Bactrim and doxycycline. Patient underwent surgery for her ankle fracture on 01/24/2017. She went for a three-week follow-up and her ankle was noted to be erythematous. She was started on Bactrim and doxycycline. However despite taking antibiotics daily her symptoms did not improve. Last night when family members were changing her dressing then noticed pus as well. Additionally patient has been having low-grade fever for 2 -3 weeks. Due to persistent erythema, her orthopedic surgeon recommended patient to come to the emergency department for IV antibiotics and further workup including infectious disease consultation. At the time of this interview , patient is doing well. Denies any chest pain, shortness of breath, fever or chills. She is accompanied by family members. Workup indicates no leukocytosis but lactic acid 2.4. Review of Systems Except as stated in HPI: all other systems reviewed are Neg Past Family Social History Past Medical History Anxiety, hyperlipidemia Past Surgical History Right ankle surgery 01/24/2017 Left breast lumpectomy 3 Reported Medications Reported Meds & Active Scripts Active Commode 3-in-1 (Device) 1 Mis Mis Ea .ROUTE DIRECTED Hydrocodone-Acetaminophen 7.5 Mg-325 Mg Tab 1 Tab PO Q4H PRN Wheelchair (Device) 1 Mis Mis Ea .ROUTE DIRECTED Walker/Adult/Folding (Device) 1 Mis Mis Ea .ROUTE DIRECTED Reported Colace Clear (Docusate Sodium) 50 Mg Cap Sulfamethoxazole-Trimethoprim 800-160 Mg Tab 1 Tab PO BID Senokot S (Sennosides-Docusate Sodium) 8.6-50 Mg Tab 1 Tab PO DAILY Duavee (Conjugated Estrogens-Bazedoxifene) 0.45-20 Mg Tab 1 Tab PO DAILY [Duova] Benadryl Allergy (Diphenhydramine HCl) 25 Mg Tablet Vitamin D3 (Cholecalciferol) 2,000 Unit Cap 2,000 Units PO DAILY Vitamin C ER (Ascorbic Acid) 500 Mg Jovanna 1,000 Mg PO Vitamin B-12 (Cyanocobalamin) 1,000 Mcg Tab 1,000 Mcg PO DAILY Multiple Vitamin 1 Tab 1 Tab PO DAILY Fluticasone Nasal [place] 50 Mcg/Act Naspr 50 Mcg EACH NARE BID 50 mcg/spray Lorazepam 1 Mg Tab 1 Mg PO HS PRN Doxycycline Hyclate 20 Mg Tab 100 Mg PO BID Citalopram (Citalopram Hydrobromide) 20 Mg Tab 20 Mg PO DAILY Aspirin EC (Aspirin) 81 Mg Tabdr 81 Mg PO DAILY Pravastatin 20 Mg Tab 40 Mg PO DAILY Allergies: Coded Allergies: iodine (Verified Allergy, Unknown, 01/23/17) Family History No family history of heart disease, cancer, Alzheimer's, Parkinson's Social History Patient denies using tobacco, alcohol, illicit drugs Physical Exam Vital Signs Vital Signs Date Time Temp Pulse Resp B/P (MAP) Pulse Ox O2 Delivery O2 Flow Rate FiO2 02/22/17 12:25 18 02/22/17 11:15 98.4 100 16 132/82 (99) 96 Physical Exam GENERAL: This is a well-nourished, well-developed patient, in no apparent distress. SKIN: No rashes, ecchymoses or lesions. Warm and dry. HEAD: Atraumatic. Normocephalic. No temporal or scalp tenderness. EYES: Pupils equal round and reactive. No injection or drainage. ENT: Nose without bleeding, purulent drainage or septal hematoma. Airway patent. NECK: Trachea midline. No lymphadenopathy. Supple, nontender, no meningeal signs. CARDIOVASCULAR: Regular rate and rhythm without murmurs, gallops, or rubs. No JVD. RESPIRATORY: Clear to auscultation. Breath sounds equal bilaterally. No wheezes , rales, or rhonchi. GASTROINTESTINAL: Abdomen soft, non-tender, nondistended. No guarding. MUSCULOSKELETAL: Extremities without clubbing, cyanosis, or edema. Splint in place on right lower extremity. Reviewed images from the family members phones. NEUROLOGICAL: Awake and alert. Cranial nerves II through XII intact. No focal neurological deficits. Normal speech. Laboratory Laboratory Tests Test 02/22/17 12:25 White Blood Count 6.4 Red Blood Count 4.36 Hemoglobin 13.9 Hematocrit 40.4 Mean Corpuscular Volume 92.6 Mean Corpuscular Hemoglobin 31.9 Mean Corpuscular Hemoglobin Concent 34.5 Red Cell Distribution Width 13.1 Platelet Count 287 Mean Platelet Volume 9.2 Neutrophils (%) (Auto) 63.4 Lymphocytes (%) (Auto) 22.2 Monocytes (%) (Auto) 11.4 Eosinophils (%) (Auto) 2.3 Basophils (%) (Auto) 0.7 Neutrophils # (Auto) 4.0 Lymphocytes # (Auto) 1.4 Monocytes # (Auto) 0.7 Eosinophils # (Auto) 0.1 Basophils # (Auto) 0.0 CBC Comment DIFF FINAL Differential Comment Prothrombin Time 10.7 Prothromb Time International Ratio 1.1 Activated Partial Thromboplast Time 25.0 Blood Urea Nitrogen 21 Creatinine 0.97 Random Glucose 130 Calcium Level 9.2 Sodium Level 135 Potassium Level 3.9 Chloride Level 103 Carbon Dioxide Level 21.9 Anion Gap 10 Estimat Glomerular Filtration Rate 56 Lactic Acid Level 2.4 C-Reactive Protein LESS THAN 0.29 Date/Time Source Procedure Growth Status 02/22/17 12:25 Blood Peripheral Aerobic Blood Culture Pending Received 02/22/17 12:25 Blood Peripheral Anaerobic Blood Culture Pending Received Result Diagram: 02/22/17 1225 02/22/17 1225 Caprini VTE Risk Assessment Caprini VTE Risk Assessment: Mod/High Risk (score >= 2) Caprini Risk Assessment Model Point Value = 1 Point Value = 2 Point Value = 3 Point Value = 5 Age 41-60 Minor surgery BMI > 25 kg/m2 Swollen legs Varicose veins or History of unexplained or recurrent spontaneous Oral contraceptives or hormone replacement Sepsis (< 1 month) Serious lung disease, including pneumonia (< 1 month) Abnormal pulmonary function Acute myocardial infarction Congestive heart failure (< 1 month) History of inflammatory bowel disease Medical patient at bed rest Age 61-74 Arthroscopic surgery Major open surgery (> 45 min) Laparoscopic surgery (> 45 min) Malignancy Confined to bed (> 72 hours) Immobilizing plaster cast Central venous access Age >= 75 History of VTE Family history of VTE Factor V Leiden Prothrombin [id number] Lupus anticoagulant Anticardiolipin antibodies Elevated serum homocysteine Heparin-induced thrombocytopenia Other congenital or acquired thrombophilia Stroke (< 1 month) Elective arthroplasty Hip, pelvis, or leg fracture Acute spinal cord injury (< 1 month) Prophylaxis Regimen Total Risk Factor Score Risk Level Prophylaxis Regimen 0-1 Low Early ambulation 2 Moderate Order ONE of the following: *Sequential Compression Device (SCD) *Heparin 5000 units SQ BID 3-4 Higher Order ONE of the following medications: *Heparin 5000 units SQ TID *Enoxaparin/Lovenox 40 mg SQ daily (WT < 150 kg, CrCl > 30 mL/min) *Enoxaparin/Lovenox 30 mg SQ daily (WT < 150 kg, CrCl > 10-29 mL/min) *Enoxaparin/Lovenox 30 mg SQ BID (WT < 150 kg, CrCl > 30 mL/min) AND/OR *Sequential Compression Device (SCD) 5 or more Highest Order ONE of the following medications: *Heparin 5000 units SQ TID (Preferred with Epidurals) *Enoxaparin/Lovenox 40 mg SQ daily (WT < 150 kg, CrCl > 30 mL/min) *Enoxaparin/Lovenox 30 mg SQ daily (WT < 150 kg, CrCl > 10-29 mL/min) *Enoxaparin/Lovenox 30 mg SQ BID (WT < 150 kg, CrCl > 30 mL/min) AND *Sequential Compression Device (SCD) Assessment and Plan Problem List: (1) Cellulitis of right ankle ICD Code: L03.115 - Cellulitis of right lower limb Status: Acute (2) Anxiety ICD Code: F41.9 - Anxiety disorder, unspecified (3) HLD (hyperlipidemia) ICD Code: E78.5 - Hyperlipidemia, unspecified Assessment and Plan Ms. Viramontes is a 77-year-old female who underwent ORIF due to right ankle fracture on 01/24/2017. Despite using antibiotics (Bactrim, Doxycycline) , her right ankle erythema is persistent and she has been having low-grade fever. Patient was recommended to come to the emergency department by her orthopedic surgeon. - Right ankle cellulitis - Possibly related to hardware infection. - Reviewed images taken by family members. Patient's erythema was significant 1-2 weeks ago as well as 2 days ago. - However, pictures from this morning shows much improvement of erythema. Patient had pus drainage last night per family members. - Patient received vancomycin and Zosyn in the emergency department. We'll continue cefepime and vancomycin. - Infectious disease consulted. - If clinically not improved, patient may need debridement. Blood cultures pending. - Anxiety/depression - continue citalopram - Hyperlipidemia - continue statin. Full code. Lovenox. Discussed with family members. Physician Certification 2 Midnight Certification Type: Admission for Inpatient Services Order for Inpatient Services The services are ordered in accordance with Medicare regulations or non- Medicare payer requirements, as applicable. In the case of services not specified as inpatient-only, they are appropriately provided as inpatient services in accordance with the 2-midnight benchmark. Estimated LOS (days): 3 days is the estimated time the patient will need to remain in the hospital, assuming treatment plan goals are met and no additional complications. Post-Hospital Plan: Not yet determined Dasia Gunderson DO Feb 22, 2017 13:41
[2017-02-22] MEDS ORDERED: SENNOSIDES 8.6 MG TAB PO PRN (13:45)
[2017-02-22] MEDS ORDERED: SODIUM CHLORIDE 0.9% FLUSH 10 ML FLUSH IV FLUSH PRN (13:45)
[2017-02-22] MEDS ORDERED: NALOXONE HCL 0.4 MG/ML AMP IV PUSH PRN (13:45)
[2017-02-22] MEDS ORDERED: MAGNESIUM HYDROXIDE SUSP 30 ML CUP PO PRN (13:45)
[2017-02-22] MEDS ORDERED: ACETAMINOPHEN 325 MG TAB PO PRN (13:45)
[2017-02-22] MEDS ORDERED: BISACODYL 10 MG SUPP RECTAL PRN (13:45)
[2017-02-22] MEDS ORDERED: LACTULOSE SYRUP 20 GM/30 ML CUP PO PRN (13:45)
[2017-02-22 15:08] VITALS: BP 135/80
[2017-02-22] MEDS ORDERED: Vancomycin Consult Pharmacy 1 EA OTHER SCH (15:15)
[2017-02-22] MEDS: ENOXAPARIN SODIUM 40 MG/0.4 ML SYRINGE SQ SCH (15:35)
[2017-02-22 16:00] VITALS: BP 143/66; PULSE 84; RESP 18; TEMP 99.2; O2SAT 94
[2017-02-22] MEDS: CEFEPIME INJ 2,000 MG in SODIUM CHLORIDE 0.9% INJ 100 ML IV SCH (17:18)
[2017-02-22 20:00] VITALS: BP 135/66; PULSE 79; RESP 18; TEMP 98.7; O2SAT 95
[2017-02-22] MEDS ORDERED: LORazepam 1 MG TAB PO SCH (21:00)
[2017-02-22] MEDS ORDERED: LORazepam 1 MG TAB PO PRN (21:00)
[2017-02-22] MEDS: ACETAMINOPHEN/HYDROcodone 325 MG/7.5 MG TAB PO PRN (21:52)
[2017-02-22] MEDS: PRAVASTATIN SOD 40 MG TAB PO SCH (21:53)
[2017-02-22] MEDS: SODIUM CHLORIDE 0.9% FLUSH 10 ML FLUSH IV FLUSH SCH (21:53)
[2017-02-23] VITALS: BP 135/60; PULSE 82; RESP 18; TEMP 99; O2SAT 96
[2017-02-23] MEDS: CEFEPIME INJ 2,000 MG in SODIUM CHLORIDE 0.9% INJ 100 ML IV SCH ×3 (01:15→18:51)
[2017-02-23] MEDS: VANCOMYCIN INJ 1,500 MG in SODIUM CHLORID 0.9% 500 ML INJ 500 ML IV SCH ×2 (01:20→21:19)
[2017-02-23] MEDS: ACETAMINOPHEN/HYDROcodone 325 MG/7.5 MG TAB PO PRN ×6 (02:03→23:09)
--- NOTE | 2017-02-23 06:52 | PD.ORT.PN ---
Subjective Subjective Remarks Carolee had previous right ankle fracture treated with open reduction internal fixation. Patient was found to have significant erythema at her initial postoperative visit. She was initially placed on Bactrim and doxycycline and had minimal improvement. She presented to the emergency room for further treatment of cellulitis right ankle. Objective Vitals Vital Signs Date Time Temp Pulse Resp B/P (MAP) Pulse Ox O2 Delivery O2 Flow Rate FiO2 02/23/17 00:00 99.0 82 18 135/60 (85) 96 02/22/17 20:00 98.7 79 18 135/66 (89) 95 02/22/17 16:00 99.2 84 18 143/66 (91) 94 02/22/17 15:08 98 18 135/80 (98) 98 02/22/17 12:25 18 02/22/17 11:15 98.4 100 16 132/82 (99) 96 I/O 02/22/17 02/22/17 02/22/17 02/23/17 02/23/17 02/23/17 07:00 15:00 23:00 07:00 15:00 23:00 Intake Total 50 ml 490 ml 615 ml Output Total 350 ml Balance 50 ml 490 ml 265 ml Intake Oral 240 ml IV Total 50 ml 250 ml 615 ml Output Urine Total 350 ml # Voids 2 # Bowel Movements 0 1 Result Diagram: 02/22/17 1225 02/22/17 1225 Other Results Laboratory Tests Test 02/22/17 12:25 Prothromb Time International Ratio 1.1 RATIO Prothrombin Time 10.7 SEC (9.8-11.6) Objective Remarks Carolee is awake and alert. Examination of right leg reveals no pain with hip or knee motion. She has minimal discomfort with gentle ankle range of motion. Erythema has significantly improved since yesterday. No drainage noted Assessment & Plan Assessment and Plan Carolee has been admitted for cellulitis of right ankle. She has been on IV antibiotics since yesterday. She has had visible improvement of redness and cellulitis overnight. Nonweightbearing right leg Elevate right leg Continue fracture Constantine Mcconnell MD Feb 23, 2017 06:52
[2017-02-23 08:00] VITALS: BP 144/65; PULSE 84; RESP 17; TEMP 98; O2SAT 92
[2017-02-23] MEDS ORDERED: PRAVASTATIN SOD 40 MG TAB PO SCH (09:00)
[2017-02-23 09:18] LABS: AUTOMATED NEUTROPHIL # 2.1 TH/MM3 (1.8-7.7); BASOPHIL % 0.6 % (0.0-2.0); EOSINOPHIL # 0.3 TH/MM3 (0-0.4); EOSINOPHIL % 5.4 % (0.0-4.0); HEMATOCRIT 34.5 % (35.0-46.0); HEMOGLOBIN 11.6 GM/DL (11.6-15.3); LYMPHOCYTE # 1.7 TH/MM3 (1.0-4.8); MEAN CELL VOLUME 93.7 FL (80.0-100.0); MEAN CORPUSCULAR HEMOGLOBIN 31.5 PG (27.0-34.0); MEAN CORPUSCULAR HGB CONC 33.6 % (32.0-36.0); MEAN PLATELET VOLUME 9.4 FL (7.0-11.0); MONO % 13.9 % (0.0-8.0); MONOCYTE # 0.7 TH/MM3 (0-0.9); NEUT % 44.1 % (16.0-70.0); PLATELET COUNT 230 TH/MM3 (150-450); RED BLOOD COUNT 3.68 MIL/MM3 (4.00-5.30); WHITE BLOOD COUNT 4.8 TH/MM3 (4.0-11.0)
[2017-02-23 09:37] LABS: BICARBONATE 24.8 MEQ/L (21.0-32.0); CALCIUM 8.5 MG/DL (8.5-10.1); CREATININE 0.82 MG/DL (0.50-1.00)
[2017-02-23] MEDS ORDERED: LORazepam 1 MG TAB PO PRN (10:15)
--- NOTE | 2017-02-23 10:39 | HHI.PR ---
Subjective Remarks On present treatment her inflammation has decreased. Erythema remains present but is also showing signs of improvement. As an outpatient she had been on Bactrim and doxycycline as a treatment for at least 6 days with no improvement so this could be considered in outpatient treatment failure. No new complaints today. Objective Vital Signs Date Time Temp Pulse Resp B/P (MAP) Pulse Ox O2 Delivery O2 Flow Rate FiO2 02/23/17 08:00 98.0 84 17 144/65 (91) 92 02/23/17 00:00 99.0 82 18 135/60 (85) 96 02/22/17 20:00 98.7 79 18 135/66 (89) 95 02/22/17 16:00 99.2 84 18 143/66 (91) 94 02/22/17 15:08 98 18 135/80 (98) 98 02/22/17 12:25 18 02/22/17 11:15 98.4 100 16 132/82 (99) 96 I/O 02/22/17 02/22/17 02/22/17 02/23/17 02/23/17 02/23/17 07:00 15:00 23:00 07:00 15:00 23:00 Intake Total 50 ml 490 ml 615 ml Output Total 350 ml Balance 50 ml 490 ml 265 ml Intake Oral 240 ml IV Total 50 ml 250 ml 615 ml Output Urine Total 350 ml # Voids 2 # Bowel Movements 0 1 Result Diagram: 02/23/1772402/23/17 0725 Objective Remarks GENERAL: NAD, A&Ox3 HEAD: Normocephalic. NECK: Supple, trachea midline. No lymphadenopathy. EYES: No scleral icterus. No injection or drainage. CARDIOVASCULAR: Regular rate and rhythm without murmurs, gallops, or rubs. RESPIRATORY: Breath sounds equal bilaterally. No accessory muscle use. GASTROINTESTINAL: Abdomen soft, non-tender, nondistended. MUSCULOSKELETAL: No cyanosis, or edema. Removable boot on right lower extremity SKIN: Warm and dry. NEURO: No focal neurological deficitis. A/P Problem List: (1) Cellulitis of right ankle ICD Code: L03.115 - Cellulitis of right lower limb Status: Acute (2) Trimalleolar fracture ICD Code: S82.853A - Displaced trimalleolar fracture of unspecified lower leg, initial encounter for closed fracture Assessment and Plan 77-year-old female admitted secondary to right lower extremity wound infection Postop repair of right trimalleolar fracture Right lower extremity wound infection Outpatient treatment failure Cellulitis right ankle Patient failed Bactrim and doxycycline as an outpatient Some clinical improvement observed today on current treatment (patient is keeping photos of wound on her phone) Continue cefepime and vancomycin ID consulted Orthopedic surgeon following Continue pain treatments as needed Anxiety Depression Continue citalopram Hyperlipidemia Continue statin Follows in outpatient DVT prophylaxis Krishna Koenig MD Feb 23, 2017 10:39
[2017-02-23] MEDS: CITALOPRAM HYDROBROMIDE 20 MG TAB PO SCH (11:08)
[2017-02-23] MEDS: SODIUM CHLORIDE 0.9% FLUSH 10 ML FLUSH IV FLUSH SCH ×2 (11:08→21:19)
[2017-02-23 12:00] VITALS: BP 133/71; PULSE 77; RESP 19; TEMP 98.2; O2SAT 94
[2017-02-23] MEDS ORDERED: [UNRECOGNIZED DRUG - OTHER] PO SCH (12:15)
[2017-02-23] MEDS ORDERED: CONJUGATED ESTROGENS PO SCH (12:15)
--- NOTE | 2017-02-23 14:42 | PD.ID.CON ---
History of Present Illness Service ID Consult Requested By Dr Gunderson Reason for Consult post surgical ankle infection Primary Care Physician Fer Dawson MD Diagnoses: History of Present Illness 77 yo female sp fall 1 month ago resulted in R tib/fib fracture sp ORIF by Dr Abdalla Upon removal of cast was redness, swelling and intermittend drainage was noted and pt was seen by Dr Bowman in the office on 02/17 She was started empirically on doxycyline an d bactrim with very moderate i provement She presented yday with ongoing swelling pain redness and intermittednt drainage and was put on IV abx Within 24 hrs her symptoms imprved No fever ESR, CRP, WBC normal Blood clx negative No wound/drainage cultures Review of Systems Except as stated in HPI: all other systems reviewed are Neg Past Family Social History Allergies: Coded Allergies: iodine (Verified Allergy, Unknown, 01/23/17) Past Medical History unremarkable Past Surgical History ORIF R ankle 1 month ago Active Ordered Medications Medications where reviewed in EMR Antibiotics Include: vancomcyin cefepime Family History non contributory reviewed Social History No Tobacco. No ETOH. No Illicit Drugs. Physical Exam Vital Signs Vital Signs Date Time Temp Pulse Resp B/P (MAP) Pulse Ox O2 Delivery O2 Flow Rate FiO2 02/23/17 12:00 98.2 77 19 133/71 (91) 94 02/23/17 08:00 98.0 84 17 144/65 (91) 92 02/23/17 00:00 99.0 82 18 135/60 (85) 96 02/22/17 20:00 98.7 79 18 135/66 (89) 95 02/22/17 16:00 99.2 84 18 143/66 (91) 94 02/22/17 15:08 98 18 135/80 (98) 98 Physical Exam CONSTITUTIONAL/GENERAL: This is an adequately nourished patient, in no apparent distress. TUBES/LINES/DRAINS: SKIN: No jaundice, rashes, or lesions. Skin temperature appropriate. Not diaphoretic. HEAD: Atraumatic. Normocephalic. EYES: Pupils equal and round and reactive. Extraocular motions intact. No scleral icterus. No injection or drainage. Fundi not examined. ENT: Hearing grossly normal. Nose without bleeding or purulent drainage. Throat without visible erythema, exudates, masses, or lesions. NECK: Trachea midline. Supple, nontender. No palpable thyroid enlargement or nodularity. CARDIOVASCULAR: Regular rate and rhythm without murmurs, gallops, or rubs. No JVD. Peripheral pulses symmetric. RESPIRATORY/CHEST: Symmetric, unlabored respirations. Clear to auscultation. Breath sounds equal bilaterally. No wheezes, rales, or rhonchi. GASTROINTESTINAL: Abdomen soft, non-tender, nondistended. No hepato-splenomegaly , or palpable masses. No guarding. Bowel sounds present. MUSCULOSKELETAL: Extremities without clubbing, cyanosis, R ankle with failrly well approximated medial and lateral incisions, minimal serous dainage on the dressin, minimal ertythem an and very small edema No tender ness to palpation No calf tenderness. No mottling or clubbing. LYMPHATICS: No palpable cervical or supraclavicular adenopathy. NEUROLOGICAL: Awake and alert. Motor and sensory grossly within normal limits. Follows commands. Cognitively sharp. Moves all extremities. PSYCHIATRIC: No obvious anxiety/depression. no apparent hallucinations or other psychotic thought process. Laboratory Laboratory Tests Test 02/22/17 19:37 02/23/17 07:25 Lactic Acid Level 1.9 White Blood Count 4.8 Red Blood Count 3.68 Hemoglobin 11.6 Hematocrit 34.5 Mean Corpuscular Volume 93.7 Mean Corpuscular Hemoglobin 31.5 Mean Corpuscular Hemoglobin Concent 33.6 Red Cell Distribution Width 13.0 Platelet Count 230 Mean Platelet Volume 9.4 Neutrophils (%) (Auto) 44.1 Lymphocytes (%) (Auto) 36.0 Monocytes (%) (Auto) 13.9 Eosinophils (%) (Auto) 5.4 Basophils (%) (Auto) 0.6 Neutrophils # (Auto) 2.1 Lymphocytes # (Auto) 1.7 Monocytes # (Auto) 0.7 Eosinophils # (Auto) 0.3 Basophils # (Auto) 0.0 CBC Comment DIFF FINAL Differential Comment Blood Urea Nitrogen 15 Creatinine 0.82 Random Glucose 91 Calcium Level 8.5 Sodium Level 138 Potassium Level 3.5 Chloride Level 106 Carbon Dioxide Level 24.8 Anion Gap 7 Estimat Glomerular Filtration Rate 68 Date/Time Source Procedure Growth Status 02/22/17 12:25 Blood Peripheral Aerobic Blood Culture - Preliminary NO GROWTH IN 1 DAY Resulted 02/22/17 12:25 Blood Peripheral Anaerobic Blood Culture - Preliminary NO GROWTH IN 1 DAY Resulted Result Diagram: 02/23/1725 02/23/17724 Assessment and Plan Assessment and Plan R tib/fib fracture Sp ORIF Infection of op site - improved wth empiric abx; no clx availnbeble tx failure with empiral po abx cont vanco, cefepime for now CT vs MRI without cultures will have to cont emprici treatment. Pina Mckeon MD Feb 23, 2017 14:42
[2017-02-23] MEDS: LACTOBACILLUS ACIDOPHILUS TAB PO SCH ×2 (15:03→18:59)
[2017-02-23] MEDS: ENOXAPARIN SODIUM 40 MG/0.4 ML SYRINGE SQ SCH (15:04)
[2017-02-23] MEDS: MULTIVITAMIN TAB PO SCH (15:06)
[2017-02-23 16:00] VITALS: BP 122/58; PULSE 81; RESP 21; TEMP 98.4; O2SAT 96
[2017-02-23] MEDS: ONDANSETRON HCL 4 MG/2 ML VIAL IVP PRN (18:50)
[2017-02-23 20:00] VITALS: BP 134/63; PULSE 86; RESP 16; TEMP 98.4; O2SAT 91
[2017-02-23] MEDS: FLUTICASONE PROPIONATE 50 MCG/ACT 16 GM NASAL SPRAY EACH NARE SCH (21:00)
[2017-02-23] MEDS: PRAVASTATIN SOD 40 MG TAB PO SCH (21:19)
[2017-02-24] VITALS: BP 131/64; PULSE 70; RESP 18; TEMP 98.3; O2SAT 96
[2017-02-24] MEDS: CEFEPIME INJ 2,000 MG in SODIUM CHLORIDE 0.9% INJ 100 ML IV SCH ×3 (02:30→15:46)
[2017-02-24] MEDS: ACETAMINOPHEN/HYDROcodone 325 MG/7.5 MG TAB PO PRN ×5 (02:33→19:58)
--- NOTE | 2017-02-24 06:53 | PD.ORT.PN ---
Subjective Subjective Remarks s/p right ankle ORIF with wound complication doing well. states it is improving. seen by infectious dz yesterday Objective Vitals Vital Signs Date Time Temp Pulse Resp B/P (MAP) Pulse Ox O2 Delivery O2 Flow Rate FiO2 02/24/17 00:00 98.3 70 18 131/64 (86) 96 02/23/17 20:00 98.4 86 16 134/63 (86) 91 02/23/17 16:00 98.4 81 21 122/58 (79) 96 02/23/17 12:00 98.2 77 19 133/71 (91) 94 02/23/17 08:00 98.0 84 17 144/65 (91) 92 I/O 02/23/17 02/23/17 02/23/17 02/24/17 02/24/17 02/24/17 07:00 15:00 23:00 07:00 15:00 23:00 Intake Total 615 ml 800 ml 1080 ml Output Total 350 ml 1250 ml Balance 265 ml 800 ml -170 ml Intake Oral 700 ml 480 ml IV Total 615 ml 100 ml 600 ml Output Urine Total 350 ml 1250 ml # Voids 7 # Bowel Movements 1 1 Result Diagram: 02/23/17 0725 02/23/17 0725 Objective Remarks a[place] is awake and alert. Examination of right leg reveals no pain with hip or knee motion. She has minimal discomfort with gentle ankle range of motion. Erythema has significantly improved since yesterday. No drainage noted Assessment & Plan Assessment and Plan Carolee has been admitted for cellulitis of right ankle. She has been on IV antibiotics since yesterday. She has had visible improvement of redness and cellulitis overnight. Nonweightbearing right leg Elevate right leg Continue fracture boot will defer to infectious dz for Abx to place her on for discharge with how she has improved, would be comfortable with po Abx meds ortho cleared for DC home once Antibiotics arranged f/u with [facility] or [place] in 2 weeks Jared Davies/Board Certified Music Therapist PA Feb 24, 2017 06:53
[2017-02-24 08:00] VITALS: BP 133/65; PULSE 75; RESP 19; TEMP 98.4; O2SAT 94
[2017-02-24] MEDS: CYANOCOBALAMIN 1,000 MCG TAB PO SCH (08:09)
[2017-02-24] MEDS: CITALOPRAM HYDROBROMIDE 20 MG TAB PO SCH (08:09)
[2017-02-24] MEDS: MULTIVITAMIN TAB PO SCH (08:10)
[2017-02-24] MEDS: CHOLECALCIFEROL (VIT D3) 1000 UNIT TAB PO SCH (08:10)
[2017-02-24] MEDS: LACTOBACILLUS ACIDOPHILUS TAB PO SCH ×3 (08:10→18:31)
[2017-02-24] MEDS: SODIUM CHLORIDE 0.9% FLUSH 10 ML FLUSH IV FLUSH SCH ×2 (08:15→19:59)
[2017-02-24] MEDS: FLUTICASONE PROPIONATE 50 MCG/ACT 16 GM NASAL SPRAY EACH NARE SCH ×2 (08:16→19:58)
[2017-02-24 09:37] LABS: AUTOMATED NEUTROPHIL # 4.4 TH/MM3 (1.8-7.7); BASOPHIL % 0.6 % (0.0-2.0); EOSINOPHIL # 0.4 TH/MM3 (0-0.4); EOSINOPHIL % 5.5 % (0.0-4.0); HEMATOCRIT 35.7 % (35.0-46.0); HEMOGLOBIN 12.1 GM/DL (11.6-15.3); LYMPH % 27.1 % (9.0-44.0); LYMPHOCYTE # 2.1 TH/MM3 (1.0-4.8); MEAN CELL VOLUME 93.4 FL (80.0-100.0); MEAN CORPUSCULAR HEMOGLOBIN 31.8 PG (27.0-34.0); MONO % 9.4 % (0.0-8.0); MONOCYTE # 0.7 TH/MM3 (0-0.9); NEUT % 57.4 % (16.0-70.0); PLATELET COUNT 226 TH/MM3 (150-450); RED BLOOD COUNT 3.82 MIL/MM3 (4.00-5.30); WHITE BLOOD COUNT 7.7 TH/MM3 (4.0-11.0)
[2017-02-24 10:02] LABS: ALBUMIN 3.2 GM/DL (3.4-5.0); AST (GOT) 21 U/L (15-37); BICARBONATE 23.8 MEQ/L (21.0-32.0); BLOOD UREA NITROGEN 12 MG/DL (7-18); CALCIUM 9.1 MG/DL (8.5-10.1); CHLORIDE 106 MEQ/L (98-107); CREATININE 0.63 MG/DL (0.50-1.00); GLOMERULAR FILTRATION RATE 92 ML/MIN (>89); GLUCOSE,RANDOM 91 MG/DL (74-106); SODIUM (NA) 137 MEQ/L (136-145)
[2017-02-24 10:06] LABS: ALKALINE PHOSPHATASE 71 U/L (45-117); ALT (GPT) 28 U/L (10-53); TOTAL BILIRUBIN ADULT 0.4 MG/DL (0.2-1.0); TOTAL PROTEIN 6.7 GM/DL (6.4-8.2)
[2017-02-24 12:00] VITALS: BP 140/63; PULSE 80; RESP 21; TEMP 98.9; O2SAT 95
[2017-02-24] MEDS: ONDANSETRON HCL 4 MG/2 ML VIAL IVP PRN (12:12)
--- NOTE | 2017-02-24 13:08 | HHI.FF ---
Face to Face Verification Diagnosis: (1) Trimalleolar fracture Nursing Dressing Changes: Daily dressing change, Coverderm/Primapore (dressing changes every other day with bacitracin or neosporin and primapore. OK to teach and provide patient with materials so can do on her own. ) I have seen patient Carolee Viramontes on 02/24/17. My clinical findings support the need for the requested home health care services because: Ltd mobility - disease progression I certify that my clinical findings support that this patient is homebound because: Post-op weakness Jared Davies/[employer] DO Feb 24, 2017 13:08
[2017-02-24] MEDS ORDERED: PHARMACY ORDERED LAB ONE (13:45)
--- NOTE | 2017-02-24 14:29 | HHI.FF ---
Face to Face Verification Diagnosis: (1) Trimalleolar fracture (2) Cellulitis of right ankle Physical Therapy Order: Evaluate and Treat Home Health Nursing Order: Signs/symptoms of disease process Wound care and dressing changes I have seen patient Carolee Viramontes on 02/24/17. My clinical findings support the need for the requested home health care services because: Deconditioned w/ increased weakness Infection w/ risk of complications I certify that my clinical findings support that this patient is homebound because: Post-op weakness Unsteady gait/balance Unable to use public transportation Krishna Juares MD Feb 24, 2017 14:29
--- NOTE | 2017-02-24 14:32 | HHI.PR ---
Subjective Remarks Blood cultures negative at 48 hours. Patient's wound continues to show signs of improvement on IV antibiotics. No new complaints from the patient. Objective Vital Signs Date Time Temp Pulse Resp B/P (MAP) Pulse Ox O2 Delivery O2 Flow Rate FiO2 02/24/17 12:00 98.9 80 21 140/63 (88) 95 02/24/17 08:00 98.4 75 19 133/65 (87) 94 02/24/17 00:00 98.3 70 18 131/64 (86) 96 02/23/17 20:00 98.4 86 16 134/63 (86) 91 02/23/17 16:00 98.4 81 21 122/58 (79) 96 I/O 02/23/17 02/23/17 02/23/17 02/24/17 02/24/17 02/24/17 07:00 15:00 23:00 07:00 15:00 23:00 Intake Total 615 ml 800 ml 1080 ml Output Total 350 ml 1250 ml Balance 265 ml 800 ml -170 ml Intake Oral 700 ml 480 ml IV Total 615 ml 100 ml 600 ml Output Urine Total 350 ml 1250 ml # Voids 7 # Bowel Movements 1 1 Result Diagram: 02/24/1791102/24/17 0912 Objective Remarks GENERAL: NAD, A&Ox3 HEAD: Normocephalic. NECK: Supple, trachea midline. No lymphadenopathy. EYES: No scleral icterus. No injection or drainage. CARDIOVASCULAR: Regular rate and rhythm without murmurs, gallops, or rubs. RESPIRATORY: Breath sounds equal bilaterally. No accessory muscle use. GASTROINTESTINAL: Abdomen soft, non-tender, nondistended. MUSCULOSKELETAL: No cyanosis, or edema. Removable boot on right lower extremity SKIN: Warm and dry. NEURO: No focal neurological deficitis. A/P Problem List: (1) Cellulitis of right ankle ICD Code: L03.115 - Cellulitis of right lower limb Status: Acute (2) Trimalleolar fracture ICD Code: S82.853A - Displaced trimalleolar fracture of unspecified lower leg, initial encounter for closed fracture Assessment and Plan 77-year-old female admitted secondary to right lower extremity wound infection. Improving on IV vancomycin and IV cefepime. Determination for outpatient IV antibiotics versus oral antibiotics is in process. Further monitoring of blood cultures is ongoing. No plans for surgical intervention per orthopedics. Postop repair of right trimalleolar fracture Right lower extremity wound infection Outpatient treatment failure Cellulitis right ankle Patient failed Bactrim and doxycycline as an outpatient Some clinical improvement observed today on current treatment (patient is keeping photos of wound on her phone) Continue cefepime and vancomycin ID consulted Orthopedic surgeon following Continue pain treatments as needed Anxiety Depression Continue citalopram Hyperlipidemia Continue statin Follows in outpatient DVT prophylaxis Krishna Koenig MD Feb 24, 2017 14:32
[2017-02-24] MEDS: ENOXAPARIN SODIUM 40 MG/0.4 ML SYRINGE SQ SCH (15:45)
[2017-02-24 16:00] VITALS: BP 133/58; PULSE 76; RESP 17; TEMP 98.1; O2SAT 94
[2017-02-24] MEDS: VANCOMYCIN INJ 1,500 MG in SODIUM CHLORID 0.9% 500 ML INJ 500 ML IV SCH (17:44)
[2017-02-24] MEDS ORDERED: CYCLOBENZAPRINE HCL 10 MG TAB PO PRN (18:15)
[2017-02-24] MEDS: PRAVASTATIN SOD 40 MG TAB PO SCH (19:58)
[2017-02-24 20:00] VITALS: BP 142/62; PULSE 81; RESP 15; TEMP 98.9; O2SAT 93
--- NOTE | 2017-02-24 23:49 | HHI.IDPN ---
Subjective Subjective Remarks delayed entry pt was seen around 7 pm today no c/o tell her wound is better and showed me pictures done during her dressing change Antibiotics vanco cefepime Allergies: Coded Allergies: iodine (Verified Allergy, Unknown, 01/23/17) Objective . Vital Signs Date Time Temp Pulse Resp B/P (MAP) Pulse Ox O2 Delivery O2 Flow Rate FiO2 02/24/17 20:00 98.9 81 15 142/62 (88) 93 02/24/17 16:00 98.1 76 17 133/58 (83) 94 02/24/17 12:00 98.9 80 21 140/63 (88) 95 02/24/17 08:00 98.4 75 19 133/65 (87) 94 02/24/17 00:00 98.3 70 18 131/64 (86) 96 02/24/17 02/24/17 02/25/17 15:00 23:00 07:00 Intake Total 100 ml 1330 ml Balance 100 ml 1330 ml Intake Oral 715 ml IV Total 100 ml 615 ml # Voids 6 # Bowel Movements 2 . Laboratory Tests Test 02/23/17 07:25 02/24/17 09:12 White Blood Count 4.8 TH/MM3 7.7 TH/MM3 Red Blood Count 3.68 MIL/MM3 3.82 MIL/MM3 Hemoglobin 11.6 GM/DL 12.1 GM/DL Hematocrit 34.5 % 35.7 % Mean Corpuscular Volume 93.7 FL 93.4 FL Mean Corpuscular Hemoglobin 31.5 PG 31.8 PG Mean Corpuscular Hemoglobin Concent 33.6 % 34.0 % Red Cell Distribution Width 13.0 % 13.0 % Platelet Count 230 TH/MM3 226 TH/MM3 Mean Platelet Volume 9.4 FL 9.0 FL Neutrophils (%) (Auto) 44.1 % 57.4 % Lymphocytes (%) (Auto) 36.0 % 27.1 % Monocytes (%) (Auto) 13.9 % 9.4 % Eosinophils (%) (Auto) 5.4 % 5.5 % Basophils (%) (Auto) 0.6 % 0.6 % Neutrophils # (Auto) 2.1 TH/MM3 4.4 TH/MM3 Lymphocytes # (Auto) 1.7 TH/MM3 2.1 TH/MM3 Monocytes # (Auto) 0.7 TH/MM3 0.7 TH/MM3 Eosinophils # (Auto) 0.3 TH/MM3 0.4 TH/MM3 Basophils # (Auto) 0.0 TH/MM3 0.0 TH/MM3 CBC Comment DIFF FINAL DIFF FINAL Differential Comment Laboratory Tests Test 02/23/17 07:25 02/24/17 09:12 Blood Urea Nitrogen 15 MG/DL 12 MG/DL Creatinine 0.82 MG/DL 0.63 MG/DL Random Glucose 91 MG/DL 91 MG/DL Calcium Level 8.5 MG/DL 9.1 MG/DL Sodium Level 138 MEQ/L 137 MEQ/L Potassium Level 3.5 MEQ/L 3.9 MEQ/L Chloride Level 106 MEQ/L 106 MEQ/L Carbon Dioxide Level 24.8 MEQ/L 23.8 MEQ/L Anion Gap 7 MEQ/L 7 MEQ/L Estimat Glomerular Filtration Rate 68 ML/MIN 92 ML/MIN Total Protein 6.7 GM/DL Albumin 3.2 GM/DL Alkaline Phosphatase 71 U/L Aspartate Amino Transf (AST/SGOT) 21 U/L Alanine Aminotransferase (ALT/SGPT) 28 U/L Total Bilirubin 0.4 MG/DL Microbiology Date/Time Source Procedure Growth Status 02/22/17 12:25 Blood Peripheral Aerobic Blood Culture - Preliminary NO GROWTH IN 2 DAYS Resulted 02/22/17 12:25 Blood Peripheral Anaerobic Blood Culture - Preliminary NO GROWTH IN 2 DAYS Resulted 02/22/17 12:20 Blood Peripheral Aerobic Blood Culture - Preliminary NO GROWTH IN 2 DAYS Resulted 02/22/17 12:20 Blood Peripheral Anaerobic Blood Culture - Preliminary NO GROWTH IN 2 DAYS Resulted Physical Exam CONSTITUTIONAL/GENERAL: This is an adequately nourished patient, in no apparent distress. TUBES/LINES/DRAINS: SKIN: No jaundice, rashes, or lesions. MUSCULOSKELETAL: R LE - dressing, brace in place Assessment & Plan Remarks R tib/fib fracture Sp ORIF Infection of op site - improved wth empiric abx; no clx availnbeble; clinical picture is favouring superficial clx, cellulitis; however if smx recur during or after tx that will signify of deeper/hardwhere infection tx failure with empiral po abx improving on iv medx no clx available - nl ESR - blood clx are negative, which is expected in case of no signs of systemic infx cont vanco, cefepime for now will dc on doxycyclin + Keflex to complete the course non contrast CT vs MRI if smx recure p abx completed fu ESR. F clinically should the pt defvelopp signs of infection cultures need to bne obtained prior to initiating abx tx without cultures will have to cont empric treatment. Pina Mckeon MD Feb 24, 2017 23:49
[2017-02-25] VITALS: BP 157/74; PULSE 87; RESP 15; TEMP 98.6; O2SAT 97
[2017-02-25] MEDS: CEFEPIME INJ 2,000 MG in SODIUM CHLORIDE 0.9% INJ 100 ML IV SCH ×2 (00:48→10:27)
[2017-02-25] MEDS: ACETAMINOPHEN/HYDROcodone 325 MG/7.5 MG TAB PO PRN ×3 (00:48→10:27)
--- NOTE | 2017-02-25 07:23 | PD.ORT.PN ---
Subjective Subjective Remarks s/p right ankle ORIF with wound complication doing well. states it is improving. seen by infectious dz yesterday. set to go home with oral Abx. Objective Vitals Vital Signs Date Time Temp Pulse Resp B/P (MAP) Pulse Ox O2 Delivery O2 Flow Rate FiO2 02/25/17 00:00 98.6 87 15 157/74 (101) 97 02/24/17 20:00 98.9 81 15 142/62 (88) 93 02/24/17 16:00 98.1 76 17 133/58 (83) 94 02/24/17 12:00 98.9 80 21 140/63 (88) 95 02/24/17 08:00 98.4 75 19 133/65 (87) 94 I/O 02/24/17 02/24/17 02/24/17 02/25/17 02/25/17 02/25/17 07:00 15:00 23:00 07:00 15:00 23:00 Intake Total 1080 ml 100 ml 1330 ml 580 ml Output Total 1250 ml Balance -170 ml 100 ml 1330 ml 580 ml Intake Oral 480 ml 715 ml 480 ml IV Total 600 ml 100 ml 615 ml 100 ml Output Urine Total 1250 ml # Voids 6 3 # Bowel Movements 2 0 Result Diagram: 02/24/1712 02/24/17911 Objective Remarks RLE: dressings clean and dry. incisions visualized. decreased erythema. no drainage. Assessment & Plan Assessment and Plan 1) Right Don Ankle Fx s/p ORIF with wound infection -NWB -maintain boot -daily dressing changes with xeroform/primapore -ortho cleared for DC home with C once oral Abx arranged -f/u segun Abdalla at previously scheduled appt on 03/07 Jared Davies/[employer] DO Feb 25, 2017 07:23
[2017-02-25 08:00] VITALS: BP 142/74; PULSE 73; RESP 17; TEMP 98.3; O2SAT 96
[2017-02-25] MEDS: VANCOMYCIN INJ 1,500 MG in SODIUM CHLORID 0.9% 500 ML INJ 500 ML IV SCH (08:04)
[2017-02-25] MEDS: CITALOPRAM HYDROBROMIDE 20 MG TAB PO SCH (08:05)
[2017-02-25] MEDS: SODIUM CHLORIDE 0.9% FLUSH 10 ML FLUSH IV FLUSH SCH (08:05)
[2017-02-25] MEDS: MULTIVITAMIN TAB PO SCH (08:05)
[2017-02-25] MEDS: CYANOCOBALAMIN 1,000 MCG TAB PO SCH (08:05)
[2017-02-25] MEDS: FLUTICASONE PROPIONATE 50 MCG/ACT 16 GM NASAL SPRAY EACH NARE SCH (08:05)
[2017-02-25] MEDS: ONDANSETRON HCL 4 MG/2 ML VIAL IVP PRN (08:06)
[2017-02-25] MEDS: CHOLECALCIFEROL (VIT D3) 1000 UNIT TAB PO SCH (08:06)
[2017-02-25] MEDS: LACTOBACILLUS ACIDOPHILUS TAB PO SCH (08:06)
[2017-02-25 12:00] VITALS: BP 139/64; PULSE 73; RESP 18; TEMP 98.2; O2SAT 99
[2017-02-25] MEDS ORDERED: LACT PO (12:10)
[2017-02-25] MEDS ORDERED: DOXY20TA3 PO (12:10)
[2017-02-25] MEDS ORDERED: DIFL150T PO (12:10)
[2017-02-25] MEDS ORDERED: CEPH-460 PO (12:10)
--- NOTE | 2017-02-25 12:12 | HHI.DS ---
Discharge Summary Admission Date Feb 22, 2017 at 13:39 Discharge Date: Feb 25, 2017 Admitting Diagnosis right ankle cellulitis; s/p surgery; failed outpatient treatment (1) Cellulitis of right ankle ICD Code: L03.115 - Cellulitis of right lower limb Diagnosis: Principal Status: Acute (2) Anxiety ICD Code: F41.9 - Anxiety disorder, unspecified Diagnosis: Secondary (3) HLD (hyperlipidemia) ICD Code: E78.5 - Hyperlipidemia, unspecified Diagnosis: Secondary Procedures none Brief History - From Admission Ms. Viramontes is a very pleasant 77-year-old female with a history of recent fall status post ORIF for right sided bimalleolar ankle fracture on 01/24 presents to the emergency department on the advice of her orthopedic surgeon Dr. Larios due to persistent erythema around the surgical site despite using by mouth antibiotics Bactrim and doxycycline. Patient underwent surgery for her ankle fracture on 01/24/2017. She went for a three-week follow-up and her ankle was noted to be erythematous. She was started on Bactrim and doxycycline. However despite taking antibiotics daily her symptoms did not improve. Last night when family members were changing her dressing then noticed pus as well. Additionally patient has been having low-grade fever for 2 -3 weeks. Due to persistent erythema, her orthopedic surgeon recommended patient to come to the emergency department for IV antibiotics and further workup including infectious disease consultation. At the time of this interview , patient is doing well. Denies any chest pain, shortness of breath, fever or chills. She is accompanied by family members. Workup indicates no leukocytosis but lactic acid 2.4. CBC/BMP: 02/24/17 0912 02/24/17 0912 Significant Findings Laboratory Tests Test 02/22/17 12:25 02/22/17 19:37 02/23/17 07:25 02/24/17 09:12 Monocytes (%) (Auto) 11.4 % (0.0-8.0) 13.9 % (0.0-8.0) 9.4 % (0.0-8.0) Blood Urea Nitrogen 21 MG/DL (7-18) Random Glucose 130 MG/DL (74-106) Sodium Level 135 MEQ/L (136-145) Estimat Glomerular Filtration Rate 56 ML/MIN (>89) 68 ML/MIN (>89) Lactic Acid Level 2.4 mmol/L (0.4-2.0) Red Blood Count 3.68 MIL/MM3 (4.00-5.30) 3.82 MIL/MM3 (4.00-5.30) Hematocrit 34.5 % (35.0-46.0) Eosinophils (%) (Auto) 5.4 % (0.0-4.0) 5.5 % (0.0-4.0) Albumin 3.2 GM/DL (3.4-5.0) Vancomycin Level Trough 20.4 MCG/ML (5.0-10.0) Hospital Course Mrs. Viramontes is a 77-year-old female. She has a history of trimalleolar fracture and had surgical repair with incisions on the medial lateral aspects of the right ankle. As an outpatient she had developed erythema and cellulitis at the wounds. She tried Bactrim as an outpatient and failed this therapy. She came into the hospital and was treated with cefepime and vancomycin. She has responded to this treatment. Cultures will not be possible as there is no drainage. Now that she is again stabilized she'll be discharged on doxycycline and Keflex as treatment. She is advised to monitor and report any worsening of her condition. Medically stable for discharge to home today with home health monitoring and outpatient follow-up with orthopedic surgeons. Pt Condition on Discharge: Stable Discharge Disposition: Disch w/ Home Health Serv Discharge Time: <= 30 minutes Discharge Instructions DIET: Follow Instructions for: As Tolerated, No Restrictions Activities you can perform: Regular-No Restrictions Follow up Referrals: Orthopedics - 2 Weeks @ [facility] with Constantine Larios MD New Medications: Cephalexin (Keflex) 500 Mg Capsule 500 MG PO Q6H for Infection, #56 CAP 0 Refills Fluconazole (Diflucan) 150 Mg Tab 150 MG PO ONCE PRN for Vaginal Itching/Burning, #1 TAB 0 Refills Lactobacillus Acidophilus (Acidophilus/l-Sporogenes) 35 Million Cell-25 Million Cell Tab 1 TAB PO TID for Probiotic, #60 TAB Continued Medications: Ascorbic Acid ER (Vitamin C ER) 500 Mg Jovanna 1000 MG PO for Nutritional Supplement, TAB [address] (Aspirin EC) 81 Mg Tabdr 81 MG PO DAILY, TAB 0 Refills Cholecalciferol (Vitamin D3) 2,000 Unit Cap 2000 UNITS PO DAILY for Nutritional Supplement, #1 BOTTLE 0 Refills Citalopram (Citalopram) 20 Mg Tab 20 MG PO DAILY for Control Depression, #30 TAB 0 Refills Conjugated Estrogens-Bazedoxifene (Duavee) 0.45-20 Mg Tab 1 TAB PO DAILY for Estrogen Supplements, #30 TAB 0 Refills Cyanocobalamin (Vitamin B-12) 1,000 Mcg Tab 1000 MCG PO DAILY for Nutritional Supplement, #1 BOTTLE 0 Refills Diphenhydramine HCl (Benadryl Allergy) 25 Mg Tablet Docusate Sodium (Colace Clear) 50 Mg Cap Doxycycline Hyclate (Doxycycline Hyclate) 20 Mg Tab 100 MG PO BID for Infection, #28 TAB (This prescription has been renewed) Fluticasone Nasal Ravena (Fluticasone Nasal Ravena) 50 Mcg/Act Naspr 50 MCG EACH NARE BID for Allergy Management, #1 BOTTLE 0 Refills 50 mcg/spray Hydrocodone-Acetaminophen (Hydrocodone-Acetaminophen) 7.5 Mg-325 Mg Tab 1 TAB PO Q4H PRN for PAIN, #40 TAB 0 Refills Lorazepam (Lorazepam) 1 Mg Tab 1 MG PO HS PRN for ANXIETY AND/OR INSOMNIA, TAB 0 Refills Multiple Vitamin (Multiple Vitamin) 1 Tab 1 TAB PO DAILY for Nutritional Supplement, TAB 0 Refills Pravastatin (Pravastatin) 20 Mg Tab 40 MG PO DAILY for Cholesterol Management, #30 TAB 0 Refills Sennosides-Docusate Sodium (Senokot S) 8.6-50 Mg Tab 1 TAB PO DAILY for Constipation, #30 TAB 0 Refills [Duova] () Discontinued Medications: Sulfamethoxazole-Trimethoprim (Sulfamethoxazole-Trimethoprim) 800-160 Mg Tab 1 TAB PO BID for Infection, TAB 0 Refills Krishna Juares MD Feb 25, 2017 12:12
[2017-02-26] MEDS ORDERED: PHARMACY ORDERED LAB ONE (01:45)
== END 2017-02-25 13:57 | disposition home health service (06) | DRG 863 ==
LOC: NEPE 11:13 → NEDA 13:39 → N07B 15:15
PROVIDERS: ADMIT Hospitalist; ATTEND Hospitalist
DX: T81.4XXA Infection following a procedure, initial encounter (principal); L03.115 Cellulitis of right lower limb; F41.9 Anxiety disorder, unspecified; E78.5 Hyperlipidemia, unspecified; S82.851D Displaced trimalleolar fracture of right lower leg, subsequent encounter for closed fracture with routine healing
CPT/HCPCS: 80048; 80053; 80202; 83605; 85025; 85610; 85652; 85730; 86140; 87040; 96365; J0692; J1650; J2405; J2543; J3370; J7040; J7050

== ENCOUNTER → 2017-05-18 | Day surgery (SDC) | payer MEDICARE ==
[~2017-05-18] VITALS: Ht 162.6 cm; Wt 68.2 kg
[~2017-05-18] MED LIST changes: +*morphine SULFATE 4 MG/ML PERIprocedure ONLY ONE; +ACETAMINOPHEN 1000 MG/100 ML 100 ML IV ONE; +ACETAMINOPHEN/HYDROcodone 325 MG/7.5 MG TAB PO PRN; -ASPI81TA23 PO; +BACT800T5 PO; -BENA25TA6; +BENA25TA6 PO; +CHLORHEXIDINE GLUCONATE 2 % 1 PACK (2 CLOTHS) TOPICAL PRN; +CHLORHEXIDINE GLUCONATE 4% SOLN 120 ML BTL TOPICAL SCH; +CONJ1TAB PO; +DEXAMETHASONE SOD PHOS 4 MG/ML VIAL IV ONE; +DO NOT ADM ANY ANTICOAGULANT DRUGS PRN; -DOXY20TA3 PO; +GENTAMICIN SULFATE 80 MG/2 ML VIAL ONE; +HYDR-3288 PO; +KETOROLAC TROMETHAMINE 30 MG/ML (IVP) VIAL IV PUSH ONE; +KETOROLAC TROMETHAMINE 30 MG/ML (IVP) VIAL ONE; +LACT PO; +LACTATED RINGER'S 1000 ML INJ 1,000 ML IV ONE; +LACTATED RINGER'S 1000 ML IV PRN; +LIDOCAINE HCL 1% PF 5 ML SYRINGE OTHER ONE; +METOPROLOL TARTRATE 25 MG TAB PO PRN; +MIDAZOLAM HCL 2 MG/2 ML VIAL ONE; +MORPHINE SULFATE 2 MG/ML INJ IV PUSH PRN; +MORPHINE SULFATE 4 MG/ML INJ ONE; +ONDANSETRON HCL 4 MG/2 ML VIAL IV PUSH ONE; +ONDANSETRON HCL 4 MG/2 ML VIAL IV PUSH PRN; +PHENYLEPH/NS 1000 MCG/10 ML SYR IV ONE; +PROPOFOL 200 MG/20 ML AMP IV ONE; +SENN1TAB17 PO; +SODIUM CHLOR 0.9% 250 ML INJ 250 ML ONE; +SODIUM CHLORID 0.9% 500 ML IV PRN; +SODIUM CHLORIDE 0.9% FLUSH 10 ML FLUSH IV FLUSH PRN; +SODIUM CHLORIDE 0.9% FLUSH 10 ML FLUSH IV FLUSH SCH; +STERILE WATER FOR INJECTION 20 ML VIAL IV ONE; +TYLE325T PO; +VANCOMYCIN HCL 1000 MG VIAL ONE; +VANCOMYCIN IV SCH; -[UNRECOGNIZED DRUG - OTHER]; +[UNRECOGNIZED DRUG - OTHER] IV SCH; +ceFAZolin 1,000 MG/NS 100 ML IV SCH; +ceFAZolin INJ 1,000 MG VIAL ONE; +ePHEDrine/NS 25 MG/5 ML SYRINGE IV ONE
--- NOTE | 2017-05-18 08:09 | PD.OP ---
cc: Constantine Larios MD Operative Report Date of Surgery: May 18, 2017 Preoperative Diagnosis: Painful hardware right right distal tibia and fibula, possible infected hardware right fibula Postoperative Diagnosis: Procedure: Removal of deep hardware right tibia, removal of deep hardware right fibula, irrigation and debridement of right fibula Surgeon: Constantine Larios Director Of Home Economics(s): BOLA Ochoa PA-C The surgical procedure was assisted by my physician assistant department manager. My P.A. presence was necessary throughout this case for the manipulation and positioning of the surgical extremity. My P.A. was assisting me throughout the duration of this procedure. The skill set of a physician assistant department manager was medically necessary to complete this procedure. During the surgical case the regional vice president surgical sales was working at the back table and the physician assistant department manager was directly assisting me. Operation and Findings: Carolee is well-known to me from previous right ankle fracture treated with open reduction internal fixation. She developed subsequent wound infection and painful hardware. Informed consent was obtained and operative site was marked. She was brought to operative room. She was given IV sedation and general anesthesia. Antibiotics were held until cultures were obtained. Right leg was prepped with alcohol followed by Hibiclens and draped usual sterile fashion. Timeout procedure was performed. Procedure began with removal of deep hardware from the right distal tibia. A 2 cm incision was made over the medial malleolus. Subcutaneous tissue dissected with Bovie. The screw heads were identified under fluoroscopy. Using appropriate screwdriver the 2 screws were removed from the medial distal tibia. Fluoroscopy confirmed appropriate removal of hardware. Next attention was turned towards removal of the distal fibula hardware. A 4 inch incision was made over the lateral distal fibula. Subcutaneous tissue dissected with Bovie. Hardware was identified. Each of the screws was now removed using appropriate screwdriver. The plate was elevated and removed. Fluoroscopy confirmed removal of all hardware. Next attention was turned towards irrigation debridement of the fibula. Because of patient's wound problems and infection, the fibula was thoroughly debrided. Curettes and rongeurs were used to debride around the fibula. Curettes were used to debride the screw holes. Tissue was obtained and sent for cultures. After thorough debridement of soft tissue and bone the wound was thoroughly irrigated with 3L of sterile saline. Incision was now closed with 3- 0 PDS and 3-0 nylon. Sterile dressings were applied. She was awakened and transferred to recovery room in stable condition. Constantine Larios MD May 18, 2017 08:09
--- NOTE | 2017-05-18 08:53 | RADRPT ---
EXAM DATE/TIME: 05/18/2017 07:52 [place] COMPARISON: ANKLE RIGHT LIMITED (AP&LAT), January 24, 2017, 9:20. INDICATIONS : Hardware removal from right ankle. MEDICAL HISTORY : None. SURGICAL HISTORY : ORIF right ankle. ENCOUNTER: Initial ACUITY: 1 day PAIN SCORE: Non-responsive. LOCATION: Right ankle. FINDINGS: A single view of the right ankle was performed. The previously noted hardware along the distal fibula and medial tibia have been removed. There is good alignment of the mortise joint. The bony structure s are grossly intact.. CONCLUSION: The previously noted hardware has been removed. Huy Shepherd MD on May 18, 2017 at 8:51 Board Certified Radiologist. This report was verified electronically.
[2017-05-18 10:48] VITALS: BP 120/62; PULSE 73; RESP 18; TEMP 98.4; O2SAT 98
== END | disposition home or self-care (01) ==
LOC: HSDC 05:48
PROVIDERS: ATTEND Orthopaedic Surgery Orthopaedic Trauma
DX: T84.84XA Pain due to internal orthopedic prosthetic devices, implants and grafts, initial encounter (principal); T84.69XA Infection and inflammatory reaction due to internal fixation device of other site, initial encounter; Y83.1 Surgical operation with implant of artificial internal device as the cause of abnormal reaction of the patient, or of later complication, without mention of misadventure at the time of the procedure
CPT/HCPCS: 01392; 20680; 73600; 76000; 87015; 87070; 87102; 87116; 87176; 87205; 87206; J0690; J1100; J1580; J1885; J2250; J2270; J2370; J2405; J3010; J3370; J7050; J7120; J0131